=== PATIENT | male | born 1955 | race Caucasian/White ===

== ENCOUNTER 2017-12-08 12:17 | Emergency (ER) | payer MEDICARE ==
[~2017-12-08] VITALS: Ht 182.9 cm; Wt 92.0 kg
[2017-12-08 12:17] VITALS: BP 113/79; PULSE 90; RESP 16; TEMP 99.3; O2SAT 90
[2017-12-08] MEDS ORDERED: PRAV40TA2 PO (12:37)
[2017-12-08] MEDS ORDERED: ASPI-516 CHEW (12:37)
[2017-12-08] MEDS ORDERED: FURO40TA PO (12:37)
[2017-12-08] MEDS ORDERED: SPIR25TA PO (12:37)
[2017-12-08] MEDS ORDERED: METO2.5T PO (12:37)
[2017-12-08] MEDS ORDERED: CARV3.12 PO (12:37)
[2017-12-08] MEDS ORDERED: WARF-58 PO (12:37)
[2017-12-08] MEDS ORDERED: ONDANSETRON HCL 4 MG/2 ML VIAL IV PUSH ONE (13:00)
[2017-12-08] MEDS ORDERED: MORPHINE SULFATE 4 MG/ML INJ IV PUSH ONE (13:00)
--- NOTE | 2017-12-08 13:28 | PD ---
HPI Chief Complaint: Musculoskeletal Complaint Time Seen by Provider: 12:43 Travel History International Travel<30 days: No Contact w/Intl Traveler<30days: No Traveled to known affect area: No History of Present Illness HPI 62-year-old male with a history of gout here with right knee pain 4 days. He reports similar pain in the past with prior gouty flares. He denies fever or chills. He denies injury or trauma. He reports multiple prior episodes of gout within the knee. He recently relocated here from [place]. He has a history of stage III chronic kidney disease, diabetes, triple bypass, gout, hypertension, osteoarthritis. He reports he was previously treated with colchicine until his kidney function declined. More recently he has been treated with steroids. He is currently on allopurinol and discontinued use when this flare began. Pain is localized to the knee, nonradiating, worse with movement. No alleviating factors. PFSH Past Medical History Arthritis: Yes (GOUT, OSTEO) Atrial Fibrillation: Yes (FLUTTER) Cardiovascular Problems: Yes (LT BBB) High Cholesterol: Yes Congestive Heart Failure: Yes Coronary Artery Disease: Yes Diabetes: Yes (TYPE 2 CONTROLLED) Patient Takes Glucophage: No Renal Failure: Yes (STAGE 3) Influenza Vaccination: Yes Past Surgical History AICD: Yes Coronary Artery Bypass Graft: Yes Social History Alcohol Use: No Tobacco Use: No Substance Use: No Allergies-Medications (Allergen,Severity, Reaction): Coded Allergies: No Known Allergies (Unverified , 12/08/17) Reported Meds & Prescriptions Reported Meds & Active Scripts Active Percocet (Oxycodone-Acetaminophen) 5-325 mg Tab 1 Tab PO Q6H PRN Reported Warfarin 3 Mg Tab 3 Mg PO DAILY Spironolactone 25 Mg Tab 25 Mg PO DAILY Pravastatin 40 Mg Tab 40 Mg PO DAILY Metolazone 2.5 Mg Tab 2.5 Mg PO DAILY Furosemide 40 Mg Tab 40 Mg PO DAILY Carvedilol 3.125 Mg Tab 3.125 Mg PO BID Aspirin 81 Mg Chew 81 Mg CHEW DAILY Review of Systems Except as stated in HPI: all other systems reviewed are Neg General / Constitutional: No: Fever Eyes: No: Visual changes HENT: No: Headaches Cardiovascular: No: Chest Pain or Discomfort Respiratory: No: Shortness of Breath Gastrointestinal: No: Abdominal Pain Genitourinary: No: Dysuria Musculoskeletal: Positive: Pain (Right knee pain) Skin: No Rash Physical Exam Narrative GENERAL: Alert and well-appearing 62-year-old male SKIN: Warm and dry. HEAD: Normocephalic. EYES: No scleral icterus. No injection or drainage. NECK: Supple CARDIOVASCULAR: Regular rate and rhythm RESPIRATORY: Breath sounds equal bilaterally. No accessory muscle use. GASTROINTESTINAL: Abdomen soft, non-tender, nondistended. MUSCULOSKELETAL: No cyanosis. Right knee: +TTP anterior aspect . visible tophi to the anterior aspect of the knee. There is no overlying erythema. Area is slightly warmer than opposing knee. Flexion elicits pain. DP pulses are dopplerable. Sensation intact Data Data Last Documented VS Vital Signs Date Time Temp Pulse Resp B/P (MAP) Pulse Ox O2 Delivery O2 Flow Rate FiO2 12/08/17 12:17 99.3 90 16 113/79 (90) 90 Orders Orders Morphine Inj (Morphine Inj) (12/08/17 13:00) Ondansetron Inj (Zofran Inj) (12/08/17 13:00) Oxycodone-Acetamin 5-325 Mg (Percocet (12/08/17 14:00) Dexamethasone Inj (Decadron Inj) (12/08/17 14:00) MDM Medical Decision Making Medical Screen Exam Complete: Yes Emergency Medical Condition: Yes Differential Diagnosis Gout, arthritis, septic joint unlikely Narrative Course 62-year-old male with right knee pain. He is well-appearing. He has significant pain with flexion of the knee. I do not suspect an infectious source. The plan is to medicate for pain and ambulate the patient. After further discussion with patient and family they report he has had difficulty ambulating for some time now. He lives with his close friend who is his caregiver and present at today's visit. He was able to ambulate from the bed to the chair with 1 person assistance. He reports symptom improvement and is requesting discharge. Diagnosis Primary Impression: Knee pain Qualified Codes: M25.561 - Pain in right knee Referrals: Primary Care Physician Additional Instructions: Follow the gout diet. Pain medication as directed. Follow-up with her primary doctor. Return to the emergency department if you develop new or worsening symptoms. Scripts Oxycodone-Acetaminophen (Percocet) 5-325 mg Tab 1 TAB PO Q6H Y for PAIN, #12 TAB 0 Refills Prov: Kimberley Ford 12/08/17 Disposition: 01 DISCHARGE HOME Condition: Stable Kimberley Ford Dec 08, 2017 13:28
[2017-12-08] MEDS ORDERED: oxyCODONE/ACETAMINOPHEN 5 MG/325 MG TAB PO ONE (14:00)
[2017-12-08] MEDS ORDERED: DEXAMETHASONE SOD PHOS 4 MG/ML VIAL IM ONE (14:00)
[2017-12-08] MEDS ORDERED: PERC5TAB12 PO (14:34)
== END 2017-12-08 14:42 | disposition home or self-care (01) ==
LOC: PHEFT 12:17 → EDBD 12:17 → PHEFT 14:42
DX: M25.561 Pain in right knee (principal); M10.9 Gout, unspecified; N18.3 Chronic kidney disease, stage 3 (moderate); E11.22 Type 2 diabetes mellitus with diabetic chronic kidney disease; I10 Essential (primary) hypertension; I48.91 Unspecified atrial fibrillation
CPT/HCPCS: 96372; 96374; 96375; 99284; J1100; J2270; J2405

== ENCOUNTER 2018-04-09 14:36 | Inpatient (IN) ==
--- NOTE | 2018-04-09 15:06 | ED ---
HPI General Chief complaint: Weakness Stated complaint: Lightheaded/knees/feet pain x Saturday Time Seen by Provider: 04/09/18 15:03 Source: patient Mode of arrival: ambulatory Limitations: no limitations History of Present Illness HPI Narrative: 62-year-old male patient with history of CAD status post CABG x4 , hypertension, A. fib currently on Coumadin, gouty arthritis, presents to the ER today because he states that he started having a gouty arthritis flare about 3 days ago, states that his knees and feet are hurting, and his usual gouty arthritis spots. However, at this time he is also having some lightheadedness, and feeling weak. He denies any fevers, diarrhea, vomiting, chest pains, trouble breathing or other symptoms. He states the pain from the gouty arthritis is 10 out of 10. Related Data Home Medications Medication Instructions Recorded Confirmed aspirin [Aspir-Low] 81 mg PO DAILY 03/06/18 04/09/18 carvedilol 3.125 mg PO BID 03/06/18 04/09/18 furosemide 40 mg PO DAILY 03/06/18 04/09/18 metolazone 2.5 mg PO DAILY 03/06/18 04/09/18 pravastatin 40 mg PO DAILY 03/06/18 04/09/18 spironolactone 25 mg PO DAILY 03/06/18 04/09/18 warfarin 6 mg PO DAILY 03/06/18 04/09/18 Previous Rx's Medication Instructions Recorded hydrocodone-acetaminophen 1 tab PO Q4-6H PRN #10 tab 03/26/18 Allergies Allergy/AdvReac Type Severity Reaction Status Date / Time No Known Allergies Allergy Verified 04/09/18 15:23 Review of Systems ROS: all other systems reviewed are negative PMFSH History History Provided By: Patient Medical History Medical History Atrial fibrillation (Acute) Cardiac defibrillator in place (Acute) Gout (Acute) Kidney disease (Acute) Social History Social History Substance History: No History of Abuse Second Hand Smoke Exposure: No Smoking Status: Never smoker How Often Do You Have a Drink Containing Alcohol: Never Recent Travel in [facility] within the Last 8 Weeks: No Recent Out of Country Travel within the Last 8 Weeks: No Exam Narrative Exam Narrative: GENERAL: Well-developed elderly male patient currently in moderate distress. Awake and oriented x3. SKIN: Focused skin assessment warm/dry. HEAD: Atraumatic. Normocephalic. EYES: Pupils equal and round. No scleral icterus. No injection or drainage. ENT: No nasal bleeding or discharge. Mucous membranes pink and moist. NECK: Trachea midline. No JVD. CARDIOVASCULAR: Regular rate and rhythm. No murmur appreciated. RESPIRATORY: No accessory muscle use. Clear to auscultation. Breath sounds equal bilaterally. GASTROINTESTINAL: Abdomen soft, non-tender, nondistended. Hepatic and splenic margins not palpable. MUSCULOSKELETAL: No obvious deformities. No clubbing. No cyanosis. No edema. 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 Tender to palpation of those joints. NEUROLOGICAL: Awake and alert. No obvious cranial nerve deficits. Motor grossly within normal limits. Normal speech. PSYCHIATRIC: Appropriate mood and affect; insight and judgment normal. Course Initial Documented Vital Signs Temperature 97.3 F L 04/09/18 14:39 Pulse Rate 138 H 04/09/18 14:39 Respiratory Rate 22 04/09/18 14:39 Blood Pressure 73/46 L 04/09/18 14:39 Pulse Oximetry 97 04/09/18 14:39 Last Documented Vital Signs Temperature 97.3 F L 04/09/18 14:39 Pulse Rate 88 04/09/18 16:00 Respiratory Rate 16 04/09/18 16:00 Blood Pressure 97/58 L 04/09/18 16:00 Pulse Oximetry 96 04/09/18 16:00 Medical Decision Making [facility] Narrative Medical decision making narrative: Lab work is significant for worsening renal function with elevated BUN of 64 and creatinine of 2.6. He is tachycardic in the ER and blood pressure is low. I suspect some underlying dehydration, son admits that he has not been eating very well. IV fluids were given in the ER with improvement in heart rate. Otherwise, his INR is 9. 3. My plan at this point would be to admit him for treatment of elevated INR and worsening renal functions. Case is discussed with Dr. Florentino for admission. Medical Screen Exam Complete: Yes Emergency Medical Condition: Yes Differential Diagnosis Differential Diagnosis: Dehydration versus dysrhythmias versus electrolyte disturbances versus sepsis Lab Data Lab results reviewed: Yes I reviewed the patient's lab results. Result diagrams: 04/09/18 15:10 04/09/18 15:10 Lab Results 04/09/18 04/09/18 04/09/18 Range/Units 15:10 15:10 15:10 CBC w Diff Slide review pending WBC 13.3 H (4.0-11.0) th/mm3 RBC 5.10 (4.50-5.90) mil/mm3 Hgb 14.6 (13.0-17.0) gm/dL Hct 42.5 (39.0-51.0) % MCV 83.3 (80.0-100.0) fL MCH 28.6 (27.0-34.0) pg MCHC 34.4 (32.0-36.0) % RDW 15.3 (11.6-17.2) % Plt Count 186 (150-450) th/mm3 MPV 10.2 (7.0-11.0) fL Neut % (Auto) 83.5 H (16.0-70.0) % Lymph % (Auto) 6.8 L (9.0-44.0) % [place] % (Auto) 7.8 (0.0-8.0) % Eos % (Auto) 1.5 (0.0-4.0) % Baso % (Auto) 0.4 (0.0-2.0) % Neut # (Auto) 11.1 H (1.8-7.7) th/mm3 Lymph # (Auto) 0.9 L (1.0-4.8) th/mm3 [place] # (Auto) 1.0 H (0.0-0.9) th/mm3 Eos # (Auto) 0.2 (0.0-0.4) th/mm3 Baso # (Auto) 0.1 (0.0-0.2) th/mm3 WBC Differential . Diff Scan Auto diff confirmed Differential Comment . Platelet Estimate Normal (Normal) Platelet Morphology Enlarged H (Normal) PT 92.8 H D (9.8-11.6) sec INR 9.3 H* Ratio Sodium 133 L (136-145) meq/L Potassium 3.3 L (3.5-5.1) meq/L Chloride 95 L (98-107) meq/L Carbon Dioxide 24.6 (21.0-32.0) meq/L Anion Gap 13 (5-15) meq/L BUN 64 H (7-18) mg/dL Creatinine 2.60 H (0.60-1.30) mg/dL Estimated GFR 25 L (>89) mL/min Random Glucose 228 H (74-106) mg/dL Calcium 9.4 (8.5-10.1) mg/dL Total Bilirubin 1.1 H (0.2-1.0) mg/dL AST 41 H (15-37) U/L ALT 32 (12-78) U/L Alkaline Phosphatase 196 H (45-117) U/L Troponin I Less than 0.02 L (0.02-0.05) ng/mL Total Protein 8.2 (6.4-8.2) g/dL Albumin 3.1 L (3.4-5.0) g/dL ECG Data Attestation: I personally reviewed and interpreted this ECG as follows: Interpretation: EKG shows atrial flutter with a ventricular rate of 100 bpm. Notable for LVH as well. No signs of acute ST elevation. Discharge Plan Discharge Disposition Patient Disposition: 30 Still Patient Discharge Condition Condition: Stable Discharge Details Anticipated Discharge Date: 04/09/18 Diagnosis: Dehydration, Elevated INR, Atrial flutter with rapid ventricular response Physicians Team ED Provider: Libra Bhandari Primary Care Provider: Cruz Saucedo Rxs /Orders / Referrals /Forms Prescriptions: No Action hydrocodone-acetaminophen 5-325 mg tablet 1 tab PO Q4-6H PRN (Reason: pain) Qty: 10 RF: 0 furosemide 40 mg Tablet 40 mg PO DAILY RF: 0 metolazone 2.5 mg Tablet 2.5 mg PO DAILY RF: 0 pravastatin 40 mg Tablet 40 mg PO DAILY RF: 0 aspirin [Aspir-Low] 81 mg Tablet,Delayed Release (Dr/Ec) 81 mg PO DAILY RF: 0 spironolactone 25 mg Tablet 25 mg PO DAILY RF: 0 carvedilol 3.125 mg Tablet 3.125 mg PO BID RF: 0 warfarin 6 mg Tablet 6 mg PO DAILY RF: 0 Discharge Interventions Interventions: Vital Signs Last Done: 04/09/18 16:00 Status ED Status: With Doctor
[2018-04-09 15:39] LABS: Baso # (Auto) 0.1 th/mm3 (0.0-0.2); Baso % (Auto) 0.4 % (0.0-2.0); Eos # (Auto) 0.2 th/mm3 (0.0-0.4); Eos % (Auto) 1.5 % (0.0-4.0); Hematocrit 42.5 % (39.0-51.0); Hemoglobin 14.6 gm/dL (13.0-17.0); Lymph # (Auto) 0.9 th/mm3 (1.0-4.8); Lymph % (Auto) 6.8 % (9.0-44.0); Mean Corpuscular HGB Conc 34.4 % (32.0-36.0); Mean Corpuscular Hemoglobin 28.6 pg (27.0-34.0); Mean Corpuscular Volume 83.3 fL (80.0-100.0); Mean Platelet Volume 10.2 fL (7.0-11.0); Mono % (Auto) 7.8 % (0.0-8.0); Neut # (Auto) 11.1 th/mm3 (1.8-7.7); Neut % (Auto) 83.5 % (16.0-70.0); Platelet Count 186 th/mm3 (150-450); Red Cell Distribution Width 15.3 % (11.6-17.2); White Blood Count 13.3 th/mm3 (4.0-11.0)
[2018-04-09 15:41] LABS: Chloride 95 meq/L (98-107); Potassium 3.3 meq/L (3.5-5.1); Sodium 133 meq/L (136-145)
[2018-04-09 15:44] LABS: Calcium 9.4 mg/dL (8.5-10.1)
[2018-04-09 15:45] LABS: Albumin 3.1 g/dL (3.4-5.0); Anion Gap 13 meq/L (5-15); Blood Urea Nitrogen 64 mg/dL (7-18); Carbon Dioxide 24.6 meq/L (21.0-32.0); Glucose,Random 228 mg/dL (74-106)
[2018-04-09 15:48] LABS: Alanine Aminotransferase 32 U/L (12-78); Aspartate Aminotransferase 41 U/L (15-37); Glomerular Filtration Rate 25 mL/min (>89)
[2018-04-09 15:49] LABS: Total Protein 8.2 g/dL (6.4-8.2)
[2018-04-09 15:51] LABS: Alkaline Phosphatase 196 U/L (45-117)
[2018-04-09 15:54] LABS: Prothrombin Time 92.8 sec (9.8-11.6)
[2018-04-09 15:59] LABS: INR 9.3 Ratio
[2018-04-09] MEDS ORDERED: Sodium Chlor 0.9% Inj 500 ML IV.SIG SCH ×2 (16:00→17:00)
[2018-04-09] MEDS ORDERED: Phytonadione 5 MG/SWFI 5 ML Oral Syringe PO ONE (16:13)
[2018-04-09 16:35] LABS: Platelet Estimate Normal (Normal)
--- NOTE | 2018-04-09 17:16 | P.HPIM ---
History of Present Illness Primary Care Physician: Cruz Saucedo Chief Complaint: left knee pain History of Present Illness: patient is a 62 y/o male with history of CAD, CKD, gout,who presented to ER with left knee and right foot pain. he was seen in ER about two weeks ago with gout flare-up and was discharged with oral steroids. he says that he was initially fine but the pain came back two days ago and started to get worse. he denies any fever,chills.he denies any chest pain, sob or active bleeding. Review of Systems All other systems reviewed negative except as stated in HPI PMFSH - History History Provided By: Patient - Medical History Medical History: Medical History (Last Reviewed 04/09/18 @ 17:13 by Anne Marie Staples MD) Atrial fibrillation Cardiac defibrillator in place Gout Kidney disease - Family History Family History: Family History (Last Reviewed 04/09/18 @ 17:13 by Anne Marie Staples MD) Other No pertinent family history - Tobacco History Second Hand Smoke Exposure: No Smoking Status: Never smoker - Alcohol History How Often Do You Have a Drink Containing Alcohol: Never - Substance Use History Substance History: No History of Abuse - Travel History Recent Travel in the [place] Within the Last 8 Weeks: No Recent Travel Out of the Country Within the Last 8 Weeks: No - Immunization History Tetanus Immunization: Unsure Medications and Allergies Active Medications: Active Medications Carvedilol (Coreg) 3.125 mg PO BID BABAK Sodium Chloride (Ns Inj) 500 mls @ 0 mls/hr IV.SIG BOLUS BABAK Last Infusion: 04/09/18 16:06 Dose: Infused Sodium Chloride (Ns Inj) 500 mls @ 0 mls/hr IV.SIG BOLUS BABAK Last Infusion: 04/09/18 16:34 Dose: Infused Sodium Chloride (Ns Inj) 1,000 mls @ 84 mls/hr IV.CONT .[id number] BABAK Pravastatin Sodium (Pravachol) 40 mg PO DAILY BABAK Prednisone (Deltasone) 40 mg PO DAILY BABAK Sodium Chloride (Ns Flush) 2 ml IV.FLUSH PRN PRN PRN Reason: FLUSH AFTER USING IV ACCESS Allergies Allergy/AdvReac Type Severity Reaction Status Date / Time No Known Allergies Allergy Verified 04/09/18 15:23 Home Medications Medication Instructions Recorded Confirmed Type aspirin [Aspir-Low] 81 mg PO DAILY 03/06/18 04/09/18 History carvedilol 3.125 mg PO BID 03/06/18 04/09/18 History furosemide 40 mg PO DAILY 03/06/18 04/09/18 History metolazone 2.5 mg PO DAILY 03/06/18 04/09/18 History pravastatin 40 mg PO DAILY 03/06/18 04/09/18 History spironolactone 25 mg PO DAILY 03/06/18 04/09/18 History warfarin 6 mg PO DAILY 03/06/18 04/09/18 History Exam Vital signs: Vital Signs 04/09/18 14:39 04/09/18 15:24 04/09/18 16:00 Temperature 97.3 F L Pulse Rate 138 H 100 H 88 Respiratory Rate 22 16 16 Blood Pressure 73/46 L 93/58 L 97/58 L Pulse Oximetry 97 96 96 Intake & Output 04/08/18 04/09/18 04/09/18 18:59 06:59 18:59 Intake Total 1000 / 1000 Balance 1000 / 1000 Weight 86.3 kg Intake: IV 1000 / 1000 NS Inj 500 ML @ Wide Open IV. 1000 / 1000 SIG BOLUS BABAK Rx#:[id number] - Constitutional no acute distress - Routine HEENT Exam Eye: Present: PERRL - Routine Neck Exam Present: supple - Routine Respiratory Exam Present: CTA bilaterally - Routine Cardiovascular Exam Present: RRR - Routine Abdominal Exam Present: soft - Routine Extremities Exam Comments: some swelling of the left knee and right foot with some decrease in ROM of the left knee. - Routine Neurological Exam Present: alert, oriented X3 Results - Labs CBC & Chem 7: 04/10/18 04:50 04/10/18 04:50 Labs: Short CBC 04/09/18 Range/Units 15:10 WBC 13.3 H (4.0-11.0) th/mm3 Hgb 14.6 (13.0-17.0) gm/dL Hct 42.5 (39.0-51.0) % Plt Count 186 (150-450) th/mm3 BMP 04/09/18 15:10 Sodium 133 L Potassium 3.3 L Chloride 95 L Carbon Dioxide 24.6 BUN 64 H Creatinine 2.60 H Calcium 9.4 Cardiac Enzymes 04/09/18 Range/Units 15:10 Troponin I Less than 0.02 L (0.02-0.05) ng/mL Liver Function 04/09/18 Range/Units 15:10 Total Bilirubin 1.1 H (0.2-1.0) mg/dL AST 41 H (15-37) U/L ALT 32 (12-78) U/L Alkaline Phosphatase 196 H (45-117) U/L Albumin 3.1 L (3.4-5.0) g/dL Caprini VTE Risk Assessment Caprini VTE Risk Assessment: Moderate/High Risk (score >= 2) VTE Pharmacological Exception Reason: High risk for bleeding Caprini Risk Assessment Model: Point Value = 1 Point Value = 2 Point Value = 3 Point Value = 5 Age 41-60 Minor surgery BMI > 25 kg/m2 Swollen legs Varicose veins or History of unexplained or recurrent spontaneous Oral contraceptives or hormone replacement Sepsis (< 1 month) Serious lung disease, including pneumonia (< 1 month) Abnormal pulmonary function Acute myocardial infarction Congestive heart failure (< 1 month) History of inflammatory bowel disease Medical patient at bed rest Age 61-74 Arthroscopic surgery Major open surgery (> 45 min) Laparoscopic surgery (> 45 min) Malignancy Confined to bed (> 72 hours) Immobilizing plaster cast Central venous access Age >= 75 History of VTE Family history of VTE Factor V Leiden Prothrombin [id number] Lupus anticoagulant Anticardiolipin antibodies Elevated serum homocysteine Heparin-induced thrombocytopenia Other congenital or acquired thrombophilia Stroke (< 1 month) Elective arthroplasty Hip, pelvis, or leg fracture Acute spinal cord injury (< 1 month) Prophylaxis Regimen: Total Risk Factor Score Risk Level Prophylaxis Regimen 0-1 Low Early ambulation 2 Moderate Order ONE of the following: *Sequential Compression Device (SCD) *Heparin 5000 units SQ BID 3-4 Higher Order ONE of the following medications: *Heparin 5000 units SQ TID *Enoxaparin/Lovenox 40 mg SQ daily (WT < 150 kg, CrCl > 30 mL/min) *Enoxaparin/Lovenox 30 mg SQ daily (WT < 150 kg, CrCl > 10-29 mL/min) *Enoxaparin/Lovenox 30 mg SQ BID (WT < 150 kg, CrCl > 30 mL/min) AND/OR *Sequential Compression Device (SCD) 5 or more Highest Order ONE of the following medications: *Heparin 5000 units SQ TID (Preferred with Epidurals) *Enoxaparin/Lovenox 40 mg SQ daily (WT < 150 kg, CrCl > 30 mL/min) *Enoxaparin/Lovenox 30 mg SQ daily (WT < 150 kg, CrCl > 10-29 mL/min) *Enoxaparin/Lovenox 30 mg SQ BID (WT < 150 kg, CrCl > 30 mL/min) AND *Sequential Compression Device (SCD) Assessment and Plan - Plan A/P - gout flare-up will start on steroids- will avoid NSAIDs/ colchicine due to HARITHA -HARITHA- superimposed on CKD gentle IV hydration- will monitor the renal function -coagulopathy/ Coumadin toxicity will hold Coumadin- received vitamin K in ER- will monitor closely; INR in am -a-fib- resume BB with close monitoring of BP- hold Coumadin as noted above. -transient hypotension- has resolved. -hyperglycemia likely due to steroids- start on accu-check with SSI- check A1c. Discussed Condition With: ER physician and the patient. Discharge Planning: home; within the next 48 hrs when pain is better and INR trending down.
[2018-04-09] MEDS ORDERED: Dextrose 50% in Water 50 ML Vial IV.PUSH PRN (17:17)
[2018-04-09] MEDS ORDERED: Acetaminophen 325 MG Tablet PO PRN (17:19)
[2018-04-09] MEDS: predniSONE 20 MG Tablet PO SCH (18:14)
[2018-04-09] MEDS: Sod Chloride 0.9% Inj 1,000 ML IV.CONT SCH (21:40)
[2018-04-09 22:08] LABS: Bilirubin,Urine Negative (Negative); Clarity,Urine Clear (Clear); Color,Urine Yellow (Yellw/Straw); Glucose,Urine (UA) Negative (Negative); Leukocyte Esterase,Urine Negative (Negative); Nitrite,Urine Negative (Negative); PH,Urine 5.5 (5.0-8.5); Urobilinogen,Urine 0.2 mg/dL (Less than 2)
[2018-04-09 22:12] LABS: Bacteria,Urine Rare /hpf; RBC,Urine 0-3 /hpf (0-3); Squamous Epithelial Cell,Urine 0-5 /hpf (0-5); WBC,Urine 0-5 /hpf (0-5)
[2018-04-09 22:13] LABS: Hyaline Casts,Urine 0-3 /lpf (0-3); Mucus,Urine Few /lpf (Occasional)
[2018-04-10] MEDS: Insulin NovoLOG Aspart Correctional Sugar Inj SQ SCH ×5 (00:15→22:31)
[2018-04-10] MEDS: Sod Chloride 0.9% Inj 1,000 ML IV.CONT SCH ×2 (06:25→18:02)
[2018-04-10 06:33] LABS: Baso % (Auto) 0.1 % (0.0-2.0); Eos % (Auto) 0.1 % (0.0-4.0); Hemoglobin 12.3 gm/dL (13.0-17.0); Lymph # (Auto) 0.3 th/mm3 (1.0-4.8); Mean Corpuscular HGB Conc 33.1 % (32.0-36.0); Mean Corpuscular Hemoglobin 28.2 pg (27.0-34.0); Mean Corpuscular Volume 85.3 fL (80.0-100.0); Mean Platelet Volume 10.8 fL (7.0-11.0); Mono # (Auto) 0.3 th/mm3 (0.0-0.9); Neut # (Auto) 7.1 th/mm3 (1.8-7.7); Neut % (Auto) 91.8 % (16.0-70.0); Platelet Count 152 th/mm3 (150-450); Red Blood Count 4.34 mil/mm3 (4.50-5.90); Red Cell Distribution Width 14.7 % (11.6-17.2); White Blood Count 7.7 th/mm3 (4.0-11.0)
[2018-04-10 06:51] LABS: Potassium 3.3 meq/L (3.5-5.1)
[2018-04-10 06:55] LABS: Calcium 8.8 mg/dL (8.5-10.1); Carbon Dioxide 26.2 meq/L (21.0-32.0)
[2018-04-10 06:59] LABS: INR 6.5 Ratio
--- NOTE | 2018-04-10 08:01 | P.PNIM ---
Subjective Interval history: f/u; gout flare-up/ coagulopathy in no acute distress. pain to the left knee/ right foot slightly better today. no fever. no bleeding/ INR trend noted. Physical Exam Vital signs: Vital Signs 04/09/18 14:39 04/09/18 15:24 04/09/18 16:00 Temperature 97.3 F L Pulse Rate 138 H 100 H 88 Respiratory Rate 22 16 16 Blood Pressure 73/46 L 93/58 L 97/58 L Pulse Oximetry 97 96 96 04/09/18 17:00 04/09/18 18:19 04/09/18 20:00 Temperature 97.0 F L Pulse Rate 66 82 67 Respiratory Rate 16 16 20 Blood Pressure 93/60 L 94/65 L 92/58 L Pulse Oximetry 95 97 99 04/09/18 21:23 04/10/18 00:00 04/10/18 00:15 Temperature 97.2 F L Pulse Rate 67 67 67 Respiratory Rate 20 Blood Pressure 99/55 L Pulse Oximetry 97 04/10/18 04:00 Temperature 97.1 F L Pulse Rate 69 Respiratory Rate 20 Blood Pressure 101/64 Pulse Oximetry 97 Intake & Output 04/09/18 04/10/18 04/10/18 18:59 06:59 18:59 Intake Total 1000 / 1000 1480 / 1480 Output Total 1750 / 1750 Balance 1000 / 1000 -270 / -270 Weight 86.3 kg 85 kg Intake: IV 1000 / 1000 1000 / 1000 NS Inj 1,000 ML @ 84 mls/hr IV. 1000 / 1000 CONT .[id number] [facility] Rx#: [id number] NS Inj 500 ML @ Wide Open IV. 1000 / 1000 SIG BOLUS [facility] Rx#:[id number] Oral 480 / 480 Output: Urine 1750 / 1750 Other: # Voids 1 Date of Last Bowel Movement 04/07/18 Weight On Admission 86 kg - Constitutional no acute distress - Routine Respiratory Exam Present: CTA bilaterally - Routine Cardiovascular Exam Present: RRR - Routine Abdominal Exam Present: soft - Routine Extremities Exam Comments: mild swelling of the left knee/ right foot; ROM of left knee is better today. - Routine Neurological Exam Present: alert, oriented X3 Results - Labs CBC & Chem 7: 04/10/18 04:50 04/10/18 04:50 Laboratory Results - last 24 hr 1004/09/18 04/09/18 15:10 15:10 15:10 CBC w Diff Slide review pending WBC 13.3 H RBC 5.10 Hgb 14.6 Hct 42.5 MCV 83.3 MCH 28.6 MCHC 34.4 RDW 15.3 Plt Count 186 MPV 10.2 Neut % (Auto) 83.5 H Lymph % (Auto) 6.8 L [place] % (Auto) 7.8 Eos % (Auto) 1.5 Baso % (Auto) 0.4 Neut # (Auto) 11.1 H Lymph # (Auto) 0.9 L [place] # (Auto) 1.0 H Eos # (Auto) 0.2 Baso # (Auto) 0.1 WBC Differential . Diff Scan Auto diff confirmed Differential Comment . Platelet Estimate Normal Platelet Morphology Enlarged H PT 92.8 H D INR 9.3 H* Sodium 133 L Potassium 3.3 L Chloride 95 L Carbon Dioxide 24.6 Anion Gap 13 BUN 64 H Creatinine 2.60 H Estimated GFR 25 L POC Glucose Random Glucose 228 H Calcium 9.4 Total Bilirubin 1.1 H AST 41 H ALT 32 Alkaline Phosphatase 196 H Troponin I Less than 0.02 L Total Protein 8.2 Albumin 3.1 L Urine Color Urine Clarity Urine pH Ur Specific [place] Urine Protein Urine Glucose (UA) Urine Ketones Urine Occult Blood Urine Nitrate Urine Bilirubin Urine Urobilinogen Ur Leukocyte Esterase Urine RBC Urine WBC Ur Squamous Epith Cells Urine Bacteria Hyaline Casts Urine Mucus Micro UA Comment Ur Microscopic Review Urine Culture Comments 04/09/18 04/09/18 04/09/18 21:50 23:13 23:18 CBC w Diff WBC RBC Hgb Hct MCV MCH MCHC RDW Plt Count MPV Neut % (Auto) Lymph % (Auto) [place] % (Auto) Eos % (Auto) Baso % (Auto) Neut # (Auto) Lymph # (Auto) [place] # (Auto) Eos # (Auto) Baso # (Auto) WBC Differential Diff Scan Differential Comment Platelet Estimate Platelet Morphology PT INR Sodium Potassium Chloride Carbon Dioxide Anion Gap BUN Creatinine Estimated GFR POC Glucose 450 H 445 H Random Glucose Calcium Total Bilirubin AST ALT Alkaline Phosphatase Troponin I Total Protein Albumin Urine Color Yellow Urine Clarity Clear Urine pH 5.5 Ur Specific [place] 1.020 Urine Protein Negative Urine Glucose (UA) Negative Urine Ketones Negative Urine Occult Blood Trace Urine Nitrate Negative Urine Bilirubin Negative Urine Urobilinogen 0.2 Ur Leukocyte Esterase Negative Urine RBC 0-3 Urine WBC 0-5 Ur Squamous Epith Cells 0-5 Urine Bacteria Rare H Hyaline Casts 0-3 Urine Mucus Few H Micro UA Comment Culture not ind Ur Microscopic Review Microscopic reviewed Urine Culture Comments Culture not ind 04/10/18 04/10/18 04/10/18 04:50 04:50 04:50 CBC w Diff Auto diff final WBC 7.7 RBC 4.34 L Hgb 12.3 L D Hct 37.0 L MCV 85.3 MCH 28.2 MCHC 33.1 RDW 14.7 Plt Count 152 MPV 10.8 Neut % (Auto) 91.8 H Lymph % (Auto) 4.0 L [place] % (Auto) 4.0 Eos % (Auto) 0.1 Baso % (Auto) 0.1 Neut # (Auto) 7.1 Lymph # (Auto) 0.3 L [place] # (Auto) 0.3 Eos # (Auto) 0.0 Baso # (Auto) 0.0 WBC Differential . Diff Scan Differential Comment . Platelet Estimate Platelet Morphology PT 65.0 H D INR 6.5 H* Sodium 136 Potassium 3.3 L Chloride 100 Carbon Dioxide 26.2 Anion Gap 10 BUN 50 H Creatinine 1.70 H Estimated GFR 41 L POC Glucose Random Glucose 280 H Calcium 8.8 Total Bilirubin AST ALT Alkaline Phosphatase Troponin I Total Protein Albumin Urine Color Urine Clarity Urine pH Ur Specific [place] Urine Protein Urine Glucose (UA) Urine Ketones Urine Occult Blood Urine Nitrate Urine Bilirubin Urine Urobilinogen Ur Leukocyte Esterase Urine RBC Urine WBC Ur Squamous Epith Cells Urine Bacteria Hyaline Casts Urine Mucus Micro UA Comment Ur Microscopic Review Urine Culture Comments 04/10/18 04/10/18 04:52 07:11 CBC w Diff WBC RBC Hgb Hct MCV MCH MCHC RDW Plt Count MPV Neut % (Auto) Lymph % (Auto) [place] % (Auto) Eos % (Auto) Baso % (Auto) Neut # (Auto) Lymph # (Auto) [place] # (Auto) Eos # (Auto) Baso # (Auto) WBC Differential Diff Scan Differential Comment Platelet Estimate Platelet Morphology PT INR Sodium Potassium Chloride Carbon Dioxide Anion Gap BUN Creatinine Estimated GFR POC Glucose 338 H 256 H Random Glucose Calcium Total Bilirubin AST ALT Alkaline Phosphatase Troponin I Total Protein Albumin Urine Color Urine Clarity Urine pH Ur Specific [place] Urine Protein Urine Glucose (UA) Urine Ketones Urine Occult Blood Urine Nitrate Urine Bilirubin Urine Urobilinogen Ur Leukocyte Esterase Urine RBC Urine WBC Ur Squamous Epith Cells Urine Bacteria Hyaline Casts Urine Mucus Micro UA Comment Ur Microscopic Review Urine Culture Comments Assessment and Plan - Plan A/P - gout flare-up- improving slowly. continue steroids- will avoid NSAIDs/ colchicine due to HARITHA -HARITHA- superimposed on CKD- improving on IV fluid. continue IV hydration- will monitor the renal function -coagulopathy/ Coumadin toxicity- INR trending down. will continue to hold Coumadin- received vitamin K in ER- will monitor closely ; INR in am -a-fib- resume BB- hold Coumadin as noted above. -hyperglycemia likely due to steroids- start on accu-check with SSI- check A1c. Discharge Planning: home; tomorrow when pain is better and INR trending down. consulted PT.
[2018-04-10] MEDS: predniSONE 20 MG Tablet PO SCH (08:09)
[2018-04-10] MEDS ORDERED: Influenza (Quadrivalent) Vaccine 0.5 ML Syringe IM ONE (09:00)
[2018-04-10 16:25] LABS: Hemoglobin A1c 7.5 % (4.3-6.0)
--- NOTE | 2018-04-10 20:33 | ECG ---
Date Performed: 04/09/2018 Time Performed: 14:56:51 PTAGE: 62 years EKG: ATRIAL FIBRILLATION WITH RAPID VENTRICULAR RESPONSE MARKED LEFT AXIS DEVIATION INTRAVENTRIC ULAR CONDUCTION DELAY LEFT VENTRICULAR HYPERTROPHY AND ST-T CHANGE ABNORMAL ECG PREVIOUS TRACING : 03/26/2018 17.00 Since the previous tracing, no significant change noted DOCTOR: Viktor Perla Interpretating Date/Time 04/10/2018 20:32:44
[2018-04-11 01:23] VITALS: O2SAT 98
[2018-04-11] MEDS: Sod Chloride 0.9% Inj 1,000 ML IV.CONT SCH (05:27)
[2018-04-11 06:17] LABS: Potassium 3.6 meq/L (3.5-5.1)
[2018-04-11 06:20] LABS: Calcium 8.8 mg/dL (8.5-10.1)
[2018-04-11 06:23] LABS: INR 2.1 Ratio; Prothrombin Time 21.4 sec (9.8-11.6)
[2018-04-11 06:50] LABS: Carbon Dioxide 26.3 meq/L (21.0-32.0)
--- NOTE | 2018-04-11 08:20 | P.PNIM ---
Subjective Interval history: f/u; gout flare-up/HARITHA in no acute distress. left knee/ right foot pain has much improved. feels better today and wants to go home. Physical Exam Vital signs: Vital Signs 04/10/18 09:00 04/10/18 12:00 04/10/18 12:01 Temperature 98.6 F Pulse Rate 70 68 Respiratory Rate 20 20 Blood Pressure 115/63 Pulse Oximetry 98 04/10/18 16:00 04/10/18 20:00 04/11/18 00:00 Temperature 97.0 F L 97.0 F L 96.6 F L Pulse Rate 86 72 70 Respiratory Rate 19 20 20 Blood Pressure 101/59 L 110/67 117/75 Pulse Oximetry 97 98 98 04/11/18 04:00 Temperature 96 F L Pulse Rate 76 Respiratory Rate 20 Blood Pressure 108/63 Pulse Oximetry 98 Intake & Output 04/10/18 04/11/18 04/11/18 18:59 06:59 18:59 Intake Total 1720 / 1720 1480 / 1480 Output Total 700 / 700 Balance 1020 / 1020 1480 / 1480 Weight 85.4 kg Intake: IV 1000 / 1000 1000 / 1000 NS Inj 1,000 ML @ 84 mls/hr IV. 1000 / 1000 1000 / 1000 CONT .[id number] [facility] Rx#: [id number] Oral 480 / 480 480 / 480 Tube Feeding 240 / 240 Output: Urine 700 / 700 Other: Date of Last Bowel Movement 04/07/18 - Constitutional no acute distress - Routine Respiratory Exam Present: CTA bilaterally - Routine Cardiovascular Exam Present: RRR - Routine Abdominal Exam Present: soft - Routine Extremities Exam Comments: swelling of the left knee has improved with better ROM. - Routine Neurological Exam Present: alert, oriented X3 Results - Labs CBC & Chem 7: 04/10/18 04:50 04/11/18 05:00 Laboratory Results - last 24 hr 04/09/18 04/10/18 04/10/18 15:10 11:56 16:26 PT INR Sodium Potassium Chloride Carbon Dioxide Anion Gap BUN Creatinine Estimated GFR POC Glucose 235 H 334 H Random Glucose Hemoglobin A1c 7.5 H Calcium 04/10/18 04/11/18 04/11/18 22:28 05:00 05:00 PT 21.4 H D INR 2.1 Sodium 139 Potassium 3.6 Chloride 105 Carbon Dioxide 26.3 Anion Gap 8 BUN 36 H Creatinine 1.10 Estimated GFR 68 L POC Glucose 265 H Random Glucose 152 H D Hemoglobin A1c Calcium 8.8 04/11/18 07:35 PT INR Sodium Potassium Chloride Carbon Dioxide Anion Gap BUN Creatinine Estimated GFR POC Glucose 154 H Random Glucose Hemoglobin A1c Calcium Assessment and Plan - Plan A/P - gout flare-up- improving. continue steroids- will avoid NSAIDs/ colchicine due to HARITHA -HARITHA- superimposed on CKD- improved. -coagulopathy/ Coumadin toxicity- INR trended down. will resume Coumadin with outpatient follow-up. -a-fib- resume BB with close monitoring of BP- on Coumadin. -transient hypotension- has resolved. -diabetes mellitus A1c 7.5- the blood sugar levels expected to improve as the steroid is being tapered off- f/u as outpatient and this was d/w the patient. Discharge Planning: dc home today with f/u with PCP. HHC was offered but the patient declined. INR monitoring as outpatient. d/w the patient. E-Cemce was consulted prior to discharge.
[2018-04-11] MEDS: predniSONE 20 MG Tablet PO SCH (08:21)
[2018-04-11] MEDS: Insulin NovoLOG Aspart Correctional Sugar Inj SQ SCH ×2 (08:22→12:14)
--- NOTE | 2018-04-11 08:30 | P.DS ---
Date of admission: 04/09/18 16:40 Primary care physician: Cruz Saucedo Brief History from admission: patient is a 62 y/o male with history of CAD, CKD, gout,who presented to ER with left knee and right foot pain. he was seen in ER about two weeks ago with gout flare-up and was discharged with oral steroids. he says that he was initially fine but the pain came back two days ago and started to get worse. he denies any fever,chills.he denies any chest pain, sob or active bleeding. DS: Medications - Discharge Medications Prescriptions: hydrocodone-acetaminophen 1 tab PO Q6H PRN #8 tab PRN Reason: acute pain prednisone 5 mg PO DIRECTED 10 Days #10 tab warfarin [Coumadin] 4 mg PO DAILY 30 Days #30 tab DS: Summary Hospital Course: patient was admitted with gout flare-up/ coumadin toxicity and HARITHA. he was started on oral steroids along with IV fluid. his general condition improved with improved pain of the left knee and right foot.his renal function improved and his INR trended down. he will be discharged home with outpatient f/u with his pcp. - Time Spent with Patient Total time spent providing and/or coordinating discharge services: Less than 30 minutes - Quality: VTE Deep Vein Thrombosis/Pulmonary Embolism Present on Admission: No Exam Vital signs: Vital Signs 04/10/18 09:00 04/10/18 12:00 04/10/18 12:01 Temperature 98.6 F Pulse Rate 70 68 Respiratory Rate 20 20 Blood Pressure 115/63 Pulse Oximetry 98 04/10/18 16:00 04/10/18 20:00 04/11/18 00:00 Temperature 97.0 F L 97.0 F L 96.6 F L Pulse Rate 86 72 70 Respiratory Rate 19 20 20 Blood Pressure 101/59 L 110/67 117/75 Pulse Oximetry 97 98 98 04/11/18 04:00 Temperature 96 F L Pulse Rate 76 Respiratory Rate 20 Blood Pressure 108/63 Pulse Oximetry 98 Intake & Output 04/10/18 04/11/18 04/11/18 18:59 06:59 18:59 Intake Total 1720 / 1720 1480 / 1480 Output Total 700 / 700 Balance 1020 / 1020 1480 / 1480 Weight 85.4 kg Intake: IV 1000 / 1000 1000 / 1000 NS Inj 1,000 ML @ 84 mls/hr IV. 1000 / 1000 1000 / 1000 CONT .[id number] [facility] Rx#: [id number] Oral 480 / 480 480 / 480 Tube Feeding 240 / 240 Output: Urine 700 / 700 Other: Date of Last Bowel Movement 04/07/18 - Constitutional no acute distress - Routine Respiratory Exam Present: CTA bilaterally - Routine Cardiovascular Exam Present: RRR - Routine Abdominal Exam Present: soft - Routine Extremities Exam Comments: improved swelling of the left knee with better ROM. - Routine Neurological Exam Present: alert, oriented X3 Results Procedures completed during hospitalization: none Labs on day of discharge: Labs from last 24 hours 04/11/18 04/11/18 04/11/18 07:35 05:00 05:00 PT 21.4 H D INR 2.1 Sodium 139 Potassium 3.6 Chloride 105 Carbon Dioxide 26.3 Anion Gap 8 BUN 36 H Creatinine 1.10 Estimated GFR 68 L POC Glucose 154 H Random Glucose 152 H D Hemoglobin A1c Calcium 8.8 04/10/18 04/10/18 04/10/18 22:28 16:26 11:56 PT INR Sodium Potassium Chloride Carbon Dioxide Anion Gap BUN Creatinine Estimated GFR POC Glucose 265 H 334 H 235 H Random Glucose Hemoglobin A1c Calcium 04/09/18 15:10 PT INR Sodium Potassium Chloride Carbon Dioxide Anion Gap BUN Creatinine Estimated GFR POC Glucose Random Glucose Hemoglobin A1c 7.5 H Calcium Discharge Plan - Discharge Disposition Patient Disposition: 01 Discharge Home - Discharge Condition Condition: Stable - Discharge Details Anticipated Discharge Date: 04/09/18 - Physicians Team Primary Care Provider: Cruz Sauecdo Attending Provider: Anne Marie Staples
[2018-04-11 09:52] VITALS: RESP 18
[2018-04-11 12:08] VITALS: BP 98/50; PULSE 72; TEMP 96.7
== END 2018-04-11 12:21 | disposition home or self-care (01) ==
LOC: PHED 14:36 → PHEDA 16:40 → PH3 18:30
PROVIDERS: ADMIT Internal Medicine; ATTEND Internal Medicine

== ENCOUNTER 2018-04-21 14:19 | Inpatient (IN) ==
--- NOTE | 2018-04-21 15:00 | ED ---
HPI General Chief complaint: Arrhythmia / Palpitations Stated complaint: elevated heart rate Time Seen by Provider: 04/21/18 14:42 Source: patient Mode of arrival: ambulatory Limitations: no limitations History of Present Illness HPI narrative: This 62-year-old male was told to come here for evaluation of fast heart rate and elevated INR. He has a history of atrial fib/flutter. He has an implanted defibrillator. He has been on Coumadin. He went for a routine evaluation of his INR today. They told him his heart rate was elevated and that he should come here. Has not had any chest pain, shortness of breath or palpitations. He has had atrial fibrillation for about 2 years. 2 years ago he had coronary bypass and defibrillator implanted. He is on carvedilol 3.125 mg p.o. twice daily. He also takes Lasix. He denies any symptoms today. He does retain fluid. He has a history of cardiomyopathy with an ejection fraction 20-30%. He also has renal failure stage III Related Data Home Medications Medication Instructions Recorded Confirmed aspirin [Aspir-Low] 81 mg PO DAILY 03/06/18 04/21/18 carvedilol 3.125 mg PO BID 03/06/18 04/21/18 furosemide 40 mg PO DAILY 03/06/18 04/21/18 pravastatin 40 mg PO DAILY 03/06/18 04/21/18 prednisone 1 tab PO DAILY 04/21/18 04/21/18 Previous Rx's Medication Instructions Recorded hydrocodone-acetaminophen 1 tab PO Q6H PRN #8 tab 04/11/18 potassium chloride 20 meq PO DAILY 30 Days #30 tab 04/11/18 warfarin [Coumadin] 4 mg PO DAILY 30 Days #30 tab 04/11/18 Allergies Allergy/AdvReac Type Severity Reaction Status Date / Time No Known Allergies Allergy Verified 04/21/18 14:39 Review of Systems ROS: all other systems reviewed are negative [facility] Medical History Medical History Arthritis (Acute) Diabetes (Acute) Atrial fibrillation (Acute) Cardiac defibrillator in place (Acute) Gout (Acute) Kidney disease (Acute) Surgical History Surgical History H/O foot surgery (Acute) Hx of CABG (Acute) Family History Family History Other No pertinent family history Social History Social History Substance History: No History of Abuse Second Hand Smoke Exposure: No Smoking Status: Never smoker How Often Do You Have a Drink Containing Alcohol: Never Recent Travel in [facility] within the Last 8 Weeks: No Recent Out of Country Travel within the Last 8 Weeks: No Immunization History Tetanus Immunization: >5 Years Exam Narrative Exam Narrative: GENERAL: Well-developed male SKIN: Focused skin assessment warm/dry. HEAD: Atraumatic. Normocephalic. EYES: Pupils equal and round. No scleral icterus. No injection or drainage. ENT: No nasal bleeding or discharge. Mucous membranes pink and moist. NECK: Trachea midline. No JVD. CARDIOVASCULAR: Rapid irregular rate and rhythm. No murmur appreciated. RESPIRATORY: No accessory muscle use. Clear to auscultation. Breath sounds equal bilaterally. GASTROINTESTINAL: Abdomen soft, non-tender, nondistended. Hepatic and splenic margins not palpable. MUSCULOSKELETAL: No obvious deformities. No clubbing. No cyanosis. No edema. NEUROLOGICAL: Awake and alert. No obvious cranial nerve deficits. Motor grossly within normal limits. Normal speech. PSYCHIATRIC: Appropriate mood and affect; insight and judgment normal. Course Initial Documented Vital Signs Temperature 98.3 F 04/21/18 14:20 Pulse Rate 134 H 04/21/18 14:20 Respiratory Rate 14 04/21/18 14:20 Blood Pressure 92/74 L 04/21/18 14:20 Last Documented Vital Signs Temperature 98.3 F 04/21/18 14:20 Pulse Rate 110 H 04/21/18 15:05 Respiratory Rate 14 04/21/18 15:05 Blood Pressure 109/63 04/21/18 15:05 Pulse Oximetry 97 04/21/18 15:05 Medical Decision Making MDM Narrative Medical decision making narrative: Initial EKG shows 80 atrial flutter at a rate of 150. During a period of observation the patient was converted to atrial fibrillation initially with a rate of 130 and he does dip down to 110 or so. I have discussed his case with Dr. Nixon who is his vocal music instructor. His blood pressure on arrival was 90/70 and remains borderline. He is not a good candidate for additional beta blockers or calcium channel blockers because of his blood pressure and his cardiomyopathy. He recommends transfer to the main hospital for consultation with Dr. Estrada. We will initiate some intravenous digoxin Medical Screen Exam Complete: Yes Emergency Medical Condition: Yes Differential Diagnosis Differential Diagnosis: Differential includes atrial flutter, atrial fibrillation, coagulopathy Lab Data Result diagrams: 04/21/18 14:50 04/21/18 14:50 Lab Results 04/21/18 04/21/18 04/21/18 Range/Units 14:50 14:50 14:50 CBC w Diff Auto diff final WBC 14.0 H (4.0-11.0) th/mm3 RBC 4.42 L (4.50-5.90) mil/mm3 Hgb 12.6 L (13.0-17.0) gm/dL Hct 37.0 L (39.0-51.0) % MCV 83.8 (80.0-100.0) fL MCH 28.4 (27.0-34.0) pg MCHC 33.9 (32.0-36.0) % RDW 16.8 (11.6-17.2) % Plt Count 157 (150-450) th/mm3 MPV 9.2 (7.0-11.0) fL Neut % (Auto) 87.9 H (16.0-70.0) % Lymph % (Auto) 6.4 L (9.0-44.0) % [place] % (Auto) 4.8 (0.0-8.0) % Eos % (Auto) 0.6 (0.0-4.0) % Baso % (Auto) 0.3 (0.0-2.0) % Neut # (Auto) 12.3 H (1.8-7.7) th/mm3 Lymph # (Auto) 0.9 L (1.0-4.8) th/mm3 [place] # (Auto) 0.7 (0.0-0.9) th/mm3 Eos # (Auto) 0.1 (0.0-0.4) th/mm3 Baso # (Auto) 0.0 (0.0-0.2) th/mm3 WBC Differential . Differential Comment . PT 29.9 H (9.8-11.6) sec INR 3.0 Ratio APTT 44.3 H (24.3-30.1) sec Sodium 136 (136-145) meq/L Potassium 4.5 (3.5-5.1) meq/L Chloride 103 (98-107) meq/L Carbon Dioxide 24.5 (21.0-32.0) meq/L Anion Gap 9 (5-15) meq/L BUN 32 H (7-18) mg/dL Creatinine 1.70 H (0.60-1.30) mg/dL Estimated GFR 41 L (>89) mL/min Random Glucose 281 H (74-106) mg/dL Calcium 8.5 (8.5-10.1) mg/dL Total Bilirubin 0.8 (0.2-1.0) mg/dL AST 18 (15-37) U/L ALT 35 (12-78) U/L Alkaline Phosphatase 199 H (45-117) U/L Troponin I Less than 0.02 L (0.02-0.05) ng/mL Total Protein 6.8 (6.4-8.2) g/dL Albumin 3.1 L (3.4-5.0) g/dL Discharge Plan Discharge Disposition Patient Disposition: 30 Still Patient Discharge Condition Condition: Fair Discharge Details Diagnosis: Atrial flutter with rapid ventricular response Physicians Team ED Provider: Misbah Murphy Primary Care Provider: Cruz Saucedo Rxs /Orders / Referrals /Forms Prescriptions: No Action hydrocodone-acetaminophen 5-325 mg tablet 1 tab PO Q6H PRN (Reason: acute pain) Qty: 8 RF: 0 warfarin [Coumadin] 4 mg Tablet 4 mg PO DAILY 30 Days Qty: 30 RF: 0 potassium chloride 20 mEq Tablet Extended Release 20 meq PO DAILY 30 Days Qty: 30 RF: 0 furosemide 40 mg Tablet 40 mg PO DAILY RF: 0 pravastatin 40 mg Tablet 40 mg PO DAILY RF: 0 aspirin [Aspir-Low] 81 mg Tablet,Delayed Release (Dr/Ec) 81 mg PO DAILY RF: 0 carvedilol 3.125 mg Tablet 3.125 mg PO BID RF: 0 prednisone 10 mg Tablets,Dose Pack 1 tab PO DAILY RF: 0 Status ED Status: With Doctor
[2018-04-21 15:01] LABS: Baso % (Auto) 0.3 % (0.0-2.0); Eos # (Auto) 0.1 th/mm3 (0.0-0.4); Eos % (Auto) 0.6 % (0.0-4.0); Hemoglobin 12.6 gm/dL (13.0-17.0); Lymph # (Auto) 0.9 th/mm3 (1.0-4.8); Lymph % (Auto) 6.4 % (9.0-44.0); Mean Corpuscular HGB Conc 33.9 % (32.0-36.0); Mean Corpuscular Hemoglobin 28.4 pg (27.0-34.0); Mean Corpuscular Volume 83.8 fL (80.0-100.0); Mean Platelet Volume 9.2 fL (7.0-11.0); Mono # (Auto) 0.7 th/mm3 (0.0-0.9); Mono % (Auto) 4.8 % (0.0-8.0); Neut # (Auto) 12.3 th/mm3 (1.8-7.7); Neut % (Auto) 87.9 % (16.0-70.0); Platelet Count 157 th/mm3 (150-450); Red Blood Count 4.42 mil/mm3 (4.50-5.90); Red Cell Distribution Width 16.8 % (11.6-17.2)
[2018-04-21 15:08] LABS: Chloride 103 meq/L (98-107); Potassium 4.5 meq/L (3.5-5.1); Sodium 136 meq/L (136-145)
[2018-04-21 15:13] LABS: Calcium 8.5 mg/dL (8.5-10.1)
[2018-04-21 15:14] LABS: Albumin 3.1 g/dL (3.4-5.0); Anion Gap 9 meq/L (5-15); Blood Urea Nitrogen 32 mg/dL (7-18); Carbon Dioxide 24.5 meq/L (21.0-32.0); Glucose,Random 281 mg/dL (74-106)
[2018-04-21 15:17] LABS: Alanine Aminotransferase 35 U/L (12-78); Aspartate Aminotransferase 18 U/L (15-37); Glomerular Filtration Rate 41 mL/min (>89)
[2018-04-21 15:18] LABS: Total Protein 6.8 g/dL (6.4-8.2)
[2018-04-21 15:20] LABS: Alkaline Phosphatase 199 U/L (45-117)
[2018-04-21 15:24] LABS: Activated Partial Thrombo Time 44.3 sec (24.3-30.1); Prothrombin Time 29.9 sec (9.8-11.6)
[2018-04-21] MEDS ORDERED: Digoxin Inj 500 MCG/2 ML Ampul IV.PUSH ONE (15:37)
--- NOTE | 2018-04-21 15:52 | XR ---
EXAM DATE: 04/21/2018 3:48 PM EDT AGE/SEX: 62 years / Male INDICATIONS: Elevated heart rate. CLINICAL DATA: This is the patient's initial encounter. Patient reports that signs and symptoms have been present for 1 day and indicates a pain score of 0/10. MEDICAL/SURGICAL HISTORY: . Cardiovascular disease. . CABG. Defibrillator. COMPARISON: [facility], CHEST 1V SINGLE AP, 03/06/2018. . FINDINGS: A single AP portable erect view of the chest was obtained and again demonstrates the patient is statu s post median sternotomy. The left subclavian transvenous pacer remains in place. Streaky opacity is again noted the lung bases left greater than right consistent with scarring. There is mild blunting o f left costophrenic angle again noted. The heart size is mildly prominent with no perihilar edema. Th e bony thorax is intact. CONCLUSION: 1. Mild blunting of the left costophrenic angle most consistent with a small effusion. 2. The heart size is mildly prominent with no evidence of acute pulmonary edema. 3. Scarring at the lung bases left greater than right. Electronically signed by: Hermelindo Louis MD 04/21/2018 3:51 PM EDT
[2018-04-21] MEDS ORDERED: Acetaminophen 325 MG Tablet PO PRN (18:20)
[2018-04-21] MEDS ORDERED: Bisacodyl 10 MG Supp RECTAL PRN (18:20)
[2018-04-21 18:38] LABS: Potassium 3.8 meq/L (3.5-5.1)
[2018-04-21 19:10] LABS: Calcium 7.3 mg/dL (8.5-10.1); Carbon Dioxide 24.5 meq/L (21.0-32.0)
[2018-04-21 19:30] LABS: Total Protein 5.8 g/dL (6.4-8.2)
[2018-04-22] MEDS: Senna/Docusate Sodium 8.6/50 MG Tablet PO SCH ×3 (00:15→21:28)
[2018-04-22] MEDS ORDERED: Dextrose 50% in Water 50 ML Vial IV.PUSH PRN (05:25)
--- NOTE | 2018-04-22 05:27 | P.HPIM ---
History of Present Illness Service: [facility] Primary Care Physician: Cruz Saucedo Chief Complaint: elevated HR History of Present Illness: 62 y/o male with a history of chf with an AICD, DM, afib anticoagulated on Coumadin, gout and ckd presented to the ED for evaluation of an elevated HR. Patient states he was getting his routine check for INR completed and he was told his HR was elevated and should come to the ER. Patient sees Dr. Nixon and the ER physician discussed the case with him and he wanted him to be evaluated by Dr. Duenas. Patient denies any associated symptoms no chest pain, sob, fever, chills, dizziness or headache. He states he has no history of an ablation and his defibrillator has never fired, he is also unsure of his most recent EF. Inpatient Certification: I certify that the inpatient services were ordered in accordance with Medicare regulations governing the order. This includes certification that hospital inpatient services are reasonable and necessary and in the case of services not specified as inpatient-only under 42 CFR 419.22(n), that they are appropriately provided as inpatient services in accordance to with the 2-midnight benchmark under 43 CFR 412.3(e) Estimated Total Length of Stay (Days): 2 Plans for Post Hospital Care: Home Review of Systems All other systems reviewed negative except as stated in HPI PMFSH - History History Provided By: Patient - Medical History Medical History: Medical History (Last Reviewed 04/22/18 @ 05:02 by KATT Pérez) Arthritis Diabetes Atrial fibrillation Cardiac defibrillator in place Gout Kidney disease - Surgical History Surgical History: Surgical History (Last Reviewed 04/22/18 @ 05:02 by KATT Pérez) H/O foot surgery Hx of CABG - Family History Family History: Family History (Last Reviewed 04/22/18 @ 05:02 by KATT Pérez) Other No pertinent family history - Social History I have reviewed the patient's Social History: Yes - Tobacco History Second Hand Smoke Exposure: No Smoking Status: Never smoker - Alcohol History How Often Do You Have a Drink Containing Alcohol: Never - Substance Use History Substance History: No History of Abuse - Travel History Recent Travel in the [place] Within the Last 8 Weeks: No Recent Travel Out of the Country Within the Last 8 Weeks: No - Immunization History Tetanus Immunization: >5 Years Hx Influenza Vaccine This Season: Yes Medications and Allergies Active Medications: Active Medications Acetaminophen (Tylenol) 650 mg PO Q4H PRN PRN Reason: Temp > 100.4 Al Hydroxide/Mg Hydroxide (Milk Of Magnesia Liq) 30 ml PO Q12H PRN PRN Reason: Mild Constipation Bisacodyl (Dulcolax Supp) 10 mg RECTAL DAILY PRN PRN Reason: SEVERE CONSITIPATION Carvedilol (Coreg) 3.125 mg PO BID [facility] Last Admin: 04/22/18 00:15 Dose: 3.125 mg Lactulose (Lactulose Liq) 30 ml PO DAILY PRN PRN Reason: SEVERE CONSITIPATION Ondansetron HCl (Zofran Inj) 4 mg IV.PUSH Q6H PRN PRN Reason: NAUSEA OR VOMITING Senna/Docusate Sodium (Mallorie-Colace) 1 tab PO BID [facility] Last Admin: 04/22/18 00:15 Dose: Not Given Sennosides (Senokot) 17.2 mg PO Q12H PRN PRN Reason: Moderate Constipation Sodium Chloride (Ns Flush) 2 ml IV.FLUSH UNSCH PRN PRN Reason: FLUSH AFTER USING IV ACCESS Allergies Allergy/AdvReac Type Severity Reaction Status Date / Time No Known Allergies Allergy Verified 04/21/18 14:39 Home Medications Medication Instructions Recorded Confirmed Type aspirin [Aspir-Low] 81 mg PO DAILY 03/06/18 04/21/18 History carvedilol 3.125 mg PO BID 03/06/18 04/21/18 History furosemide 40 mg PO DAILY 03/06/18 04/21/18 History pravastatin 40 mg PO DAILY 03/06/18 04/21/18 History prednisone 1 tab PO DAILY 04/21/18 04/21/18 History Exam Vital signs: Vital Signs 04/21/18 14:20 04/21/18 14:43 04/21/18 14:52 Temperature 98.3 F Pulse Rate 134 H 132 H Respiratory Rate 14 Blood Pressure 92/74 L Pulse Oximetry 96 98 04/21/18 15:05 04/21/18 16:14 04/21/18 18:00 Temperature Pulse Rate 110 H 72 Respiratory Rate 14 14 Blood Pressure 109/63 119/79 Pulse Oximetry 97 97 98 04/21/18 19:02 04/21/18 20:00 04/21/18 22:00 Temperature 97.8 F 98.2 F Pulse Rate 92 H 98 H 73 Respiratory Rate 16 18 Blood Pressure 131/64 144/67 H Pulse Oximetry 97 99 04/21/18 23:00 04/21/18 23:30 04/22/18 00:00 Temperature 98.0 F Pulse Rate 73 71 72 Respiratory Rate 15 Blood Pressure 107/61 Pulse Oximetry 99 04/22/18 01:00 04/22/18 02:00 04/22/18 03:00 Temperature 97.9 F Pulse Rate 72 72 73 Respiratory Rate 15 Blood Pressure 109/68 Pulse Oximetry 97 04/22/18 04:00 Temperature Pulse Rate 71 Respiratory Rate Blood Pressure Pulse Oximetry Intake & Output 04/21/18 04/21/18 04/22/18 06:59 18:59 06:59 Intake Total 48 / 48 Output Total 600 / 600 Balance -552 / -552 Weight 92 kg Intake: Oral 48 / 48 Output: Urine 600 / 600 Narrative: GENERAL: This is a well-nourished, well-developed patient, in no apparent distress. CARDIOVASCULAR: Regular rate and irregular rhythm without murmurs, gallops, or rubs. RESPIRATORY: Clear to auscultation. Breath sounds equal bilaterally. No wheezes , rales, or rhonchi. GASTROINTESTINAL: Abdomen soft, non-tender, nondistended. Normal active bowel sounds MUSCULOSKELETAL: Extremities without clubbing, cyanosis, or edema. NEURO: Alert & Oriented x4 to person, place, time, situation. Moves all ext x4 Results - Labs CBC & Chem 7: 04/21/18 14:50 04/21/18 18:25 Labs: Short CBC 04/21/18 Range/Units 14:50 WBC 14.0 H (4.0-11.0) th/mm3 Hgb 12.6 L (13.0-17.0) gm/dL Hct 37.0 L (39.0-51.0) % Plt Count 157 (150-450) th/mm3 BMP 04/21/18 04/21/18 14:50 18:25 Sodium 136 138 Potassium 4.5 3.8 Chloride 103 107 Carbon Dioxide 24.5 24.5 BUN 32 H 29 H Creatinine 1.70 H 1.40 H Calcium 8.5 7.3 L* D Cardiac Enzymes 04/21/18 Range/Units 14:50 Troponin I Less than 0.02 L (0.02-0.05) ng/mL Liver Function 04/21/18 Range/Units 14:50 Total Bilirubin 0.8 (0.2-1.0) mg/dL AST 18 (15-37) U/L ALT 35 (12-78) U/L Alkaline Phosphatase 199 H (45-117) U/L Albumin 3.1 L (3.4-5.0) g/dL - Imaging Impressions Chest X-Ray 04/21/18 15:37 CONCLUSION: 1. Mild blunting of the left costophrenic angle most consistent with a small effusion. 2. The heart size is mildly prominent with no evidence of acute pulmonary edema. 3. Scarring at the lung bases left greater than right. Caprini VTE Risk Assessment Caprini VTE Risk Assessment: Moderate/High Risk (score >= 2) Caprini Risk Assessment Model: Point Value = 1 Point Value = 2 Point Value = 3 Point Value = 5 Age 41-60 Minor surgery BMI > 25 kg/m2 Swollen legs Varicose veins or History of unexplained or recurrent spontaneous Oral contraceptives or hormone replacement Sepsis (< 1 month) Serious lung disease, including pneumonia (< 1 month) Abnormal pulmonary function Acute myocardial infarction Congestive heart failure (< 1 month) History of inflammatory bowel disease Medical patient at bed rest Age 61-74 Arthroscopic surgery Major open surgery (> 45 min) Laparoscopic surgery (> 45 min) Malignancy Confined to bed (> 72 hours) Immobilizing plaster cast Central venous access Age >= 75 History of VTE Family history of VTE Factor V Leiden Prothrombin [id number] Lupus anticoagulant Anticardiolipin antibodies Elevated serum homocysteine Heparin-induced thrombocytopenia Other congenital or acquired thrombophilia Stroke (< 1 month) Elective arthroplasty Hip, pelvis, or leg fracture Acute spinal cord injury (< 1 month) Prophylaxis Regimen: Total Risk Factor Score Risk Level Prophylaxis Regimen 0-1 Low Early ambulation 2 Moderate Order ONE of the following: *Sequential Compression Device (SCD) *Heparin 5000 units SQ BID 3-4 Higher Order ONE of the following medications: *Heparin 5000 units SQ TID *Enoxaparin/Lovenox 40 mg SQ daily (WT < 150 kg, CrCl > 30 mL/min) *Enoxaparin/Lovenox 30 mg SQ daily (WT < 150 kg, CrCl > 10-29 mL/min) *Enoxaparin/Lovenox 30 mg SQ BID (WT < 150 kg, CrCl > 30 mL/min) AND/OR *Sequential Compression Device (SCD) 5 or more Highest Order ONE of the following medications: *Heparin 5000 units SQ TID (Preferred with Epidurals) *Enoxaparin/Lovenox 40 mg SQ daily (WT < 150 kg, CrCl > 30 mL/min) *Enoxaparin/Lovenox 30 mg SQ daily (WT < 150 kg, CrCl > 10-29 mL/min) *Enoxaparin/Lovenox 30 mg SQ BID (WT < 150 kg, CrCl > 30 mL/min) AND *Sequential Compression Device (SCD) Assessment and Plan - Plan 62 y/o male with a history of chf with an AICD, DM, afib anticoagulated on Coumadin, gout and ckd presented to the ED for evaluation of an elevated HR. Afib/Flutter RVR, HR 150 EKG Reviewed and shows a rapid rate of 150, irregular rhythm -Monitor telemetry -Consult to Dr. Duenas for evaluation -Cont home Coumadin CHF, chronic, bnp slightly elevated 299 -Cont home carvedilol and Lasix DM, chronic -Accu checks with SSI CKD, creatine 1.4 at baseline -Avoid nephrotoxins -Monitor creatine DVT prophylaxis: Coumadin Discussed Condition With: Patient and RN H&P: Quality - VTE Deep Vein Thrombosis/Pulmonary Embolism Present on Admission: No
[2018-04-22] MEDS: Insulin NovoLOG Aspart Correctional Sugar Inj SQ SCH ×4 (08:14→21:28)
[2018-04-22] MEDS: Furosemide 40 MG Tablet PO SCH (09:28)
--- NOTE | 2018-04-22 10:04 | P.PNIM ---
Subjective Interval history: Patient is laying down comfortably. He currently does not have any complaints. Physical Exam Vital signs: Vital Signs 04/21/18 14:20 04/21/18 14:43 04/21/18 14:52 Temperature 98.3 F Pulse Rate 134 H 132 H Respiratory Rate 14 Blood Pressure 92/74 L Pulse Oximetry 96 98 04/21/18 15:05 04/21/18 16:14 04/21/18 18:00 Temperature Pulse Rate 110 H 72 Respiratory Rate 14 14 Blood Pressure 109/63 119/79 Pulse Oximetry 97 97 98 04/21/18 19:02 04/21/18 20:00 04/21/18 22:00 Temperature 97.8 F 98.2 F Pulse Rate 92 H 98 H 73 Respiratory Rate 16 18 Blood Pressure 131/64 144/67 H Pulse Oximetry 97 99 04/21/18 23:00 04/21/18 23:30 04/22/18 00:00 Temperature 98.0 F Pulse Rate 73 71 72 Respiratory Rate 15 Blood Pressure 107/61 Pulse Oximetry 99 04/22/18 01:00 04/22/18 02:00 04/22/18 03:00 Temperature 97.9 F Pulse Rate 72 72 73 Respiratory Rate 15 Blood Pressure 109/68 Pulse Oximetry 97 04/22/18 04:00 04/22/18 05:00 04/22/18 06:00 Temperature Pulse Rate 71 72 73 Respiratory Rate Blood Pressure Pulse Oximetry 04/22/18 07:00 04/22/18 08:00 04/22/18 09:00 Temperature 98.1 F Pulse Rate 73 74 72 Respiratory Rate 16 Blood Pressure 117/70 Pulse Oximetry 98 04/22/18 09:44 04/22/18 09:47 Temperature Pulse Rate 89 Respiratory Rate Blood Pressure Pulse Oximetry 98 Intake & Output 04/21/18 04/22/18 04/22/18 18:59 06:59 18:59 Intake Total 528 / 528 Output Total 1650 / 1650 Balance -1122 / -1122 Weight 92 kg 88.4 kg Intake: Oral 528 / 528 Output: Urine 1650 / 1650 Narrative: General patient in no acute distress, denies palpitations, chest pain, or dizziness. HEENT extraocular movements are intact, clear oropharyngeal mucosa, no JVD Cardiovascular S1-S2 audible Respiratory clear to auscultation bilaterally Abdomen soft, nontender, nondistended, normal bowel sounds Extremities no edema 2+ distal pulses in bilateral upper and lower extremities Neuro there are no neurological deficits. Patient was all 4 extremities, sensation is intact bilaterally. Results - Labs CBC & Chem 7: 04/21/18 14:50 04/21/18 18:25 Laboratory Results - last 24 hr 04/21/18 04/21/18 04/21/18 14:50 14:50 14:50 CBC w Diff Auto diff final WBC 14.0 H RBC 4.42 L Hgb 12.6 L Hct 37.0 L MCV 83.8 MCH 28.4 MCHC 33.9 RDW 16.8 Plt Count 157 MPV 9.2 Neut % (Auto) 87.9 H Lymph % (Auto) 6.4 L [place] % (Auto) 4.8 Eos % (Auto) 0.6 Baso % (Auto) 0.3 Neut # (Auto) 12.3 H Lymph # (Auto) 0.9 L [place] # (Auto) 0.7 Eos # (Auto) 0.1 Baso # (Auto) 0.0 WBC Differential . Differential Comment . PT 29.9 H INR 3.0 APTT 44.3 H Sodium 136 Potassium 4.5 Chloride 103 Carbon Dioxide 24.5 Anion Gap 9 BUN 32 H Creatinine 1.70 H Estimated GFR 41 L POC Glucose Random Glucose 281 H Calcium 8.5 Prot Corrected Calcium Total Bilirubin 0.8 AST 18 ALT 35 Alkaline Phosphatase 199 H Troponin I Less than 0.02 L B-Natriuretic Peptide Total Protein 6.8 Albumin 3.1 L TSH 04/21/18 04/21/18 04/21/18 14:50 18:25 18:25 CBC w Diff WBC RBC Hgb Hct MCV MCH MCHC RDW Plt Count MPV Neut % (Auto) Lymph % (Auto) [place] % (Auto) Eos % (Auto) Baso % (Auto) Neut # (Auto) Lymph # (Auto) [place] # (Auto) Eos # (Auto) Baso # (Auto) WBC Differential Differential Comment PT INR APTT Sodium 138 Potassium 3.8 Chloride 107 Carbon Dioxide 24.5 Anion Gap 7 BUN 29 H Creatinine 1.40 H Estimated GFR 51 L POC Glucose Random Glucose 156 H D Calcium 7.3 L* D Prot Corrected Calcium 8.0 L Total Bilirubin AST ALT Alkaline Phosphatase Troponin I B-Natriuretic Peptide 299 H Total Protein 5.8 L D Albumin TSH 0.346 L 04/22/18 07:39 CBC w Diff WBC RBC Hgb Hct MCV MCH MCHC RDW Plt Count MPV Neut % (Auto) Lymph % (Auto) [place] % (Auto) Eos % (Auto) Baso % (Auto) Neut # (Auto) Lymph # (Auto) [place] # (Auto) Eos # (Auto) Baso # (Auto) WBC Differential Differential Comment PT INR APTT Sodium Potassium Chloride Carbon Dioxide Anion Gap BUN Creatinine Estimated GFR POC Glucose 104 Random Glucose Calcium Prot Corrected Calcium Total Bilirubin AST ALT Alkaline Phosphatase Troponin I B-Natriuretic Peptide Total Protein Albumin TSH - Imaging Impressions Chest X-Ray 04/21/18 15:37 CONCLUSION: 1. Mild blunting of the left costophrenic angle most consistent with a small effusion. 2. The heart size is mildly prominent with no evidence of acute pulmonary edema. 3. Scarring at the lung bases left greater than right. Assessment and Plan - Plan This patient is a 62-year-old male with a diagnosis of coronary artery disease status post CABG, systolic CHF status post AICD, diabetes mellitus type 2, atrial fibrillation on Coumadin. The patient was getting his INR checked yesterday and was found to have a heart rate in the 150s. He was advised to come into the emergency department for evaluation. 1. A. fib/flutter with RVR Initial EKG shows A. fib with RVR and a heart rate in the 150s. Patient denied any chest pain, palpitations, or dizziness. Heart rate now better controlled. Continue Coreg Cardiology consulted to evaluate the patient. Will possibly benefit from ablation. I will follow-up with the recommendations from cardiology. Continue Coumadin. Continue to monitor on telemetry. 2. Systolic CHF Continue current medication regimen. Patient appears euvolemic, not in exacerbation. 3. Diabetes mellitus type 2 Continue sliding scale. The patient's diabetes medication regimen will be adjusted as needed. 4. Coronary artery disease status post CABG Continue aspirin, continue beta-yareli, continue statin. 5. Chronic kidney disease Baseline serum creatinine is 1.4. Avoid nephrotoxic agents. DVT prophylaxis, patient is on Coumadin.
--- NOTE | 2018-04-22 16:25 | ECG ---
Date Performed: 04/21/2018 Time Performed: 14:26:10 PTAGE: 62 years EKG: Supraventricular tachycardia with PVC's MARKED LEFT AXIS DEVIATION INTRAVENTRICULAR CONDUCT ION DELAY LEFT VENTRICULAR HYPERTROPHY AND ST-T CHANGE ABNORMAL ECG INTERPRETATION BASED ON A DEFAULT AGE OF 40 YEARS PREVIOUS TRACING : 04/09/2018 14.56 DOCTOR: Sal Lemus Interpretating Date/Time 04/22/2018 16:24:35
[2018-04-22] MEDS ORDERED: Lidocaine PF 1% Inj 30 ML Vial ONE (17:19)
[2018-04-22] MEDS ORDERED: Protamine Sulfate Inj 50 MG/5 ML Vial ONE (17:51)
[2018-04-22] MEDS ORDERED: Heparin Drip 25,000 UNIT/250 ML BAG IV.CONT ONE (17:51)
[2018-04-22] MEDS ORDERED: Heparin 10,000 UNITS/10 ML Vial (for IV use) ONE (17:52)
[2018-04-22] MEDS ORDERED: Isoproterenol HCl Inj 0.2 MG/ML Ampul ONE (17:52)
--- NOTE | 2018-04-22 18:58 | CATHPROC ---
Patient Name: Masoud De Paz Study #: [id number] Initial MD: Oliver Duenas Date of : 1955 Study Date: 04/22/2018 Cardiac Catheterization Report 04/22/2018 6:58:13 PM Financial #: [id number] 1 of 10 Patient Name: Masoud De Paz Study #: [id number] Initial MD: Oliver Duenas Date of : 1955 Study Date: 04/22/2018 Entire Case Report Patient Information Patient Name Masoud De Paz Date of 1955 Age 62 years Financial # [id number] Gender M AlternateID Lab Number 2 Room Number 457 Height (in) 72.0 Height (cm) 182.8 BSA 2.11 Weight (lbs) 194.5 Weight (kg) 88.4 Patient Address/Phone Number Home Address [facility] Home Phone Number [phone] [facility] [address] [place] [address] Study Information Study Number Admission Scheduled Start Study Start [id number] Apr 21 2018 3:56PM 04/22/2018 Apr 22 2018 4:43PM [place] [facility] Cardiac Catheterization Admit Source Facility Department Other [facility] Physician and Clinical Staff Initial Oliver Cornejo Manager Concrete Loc Winter,RT(R) Manager Concrete Pili HenaoRT(R) TECH2 Other Anesthesia, TANK CAR RECONDITIONER Recorder Rosi Ruiz,BIB Scrub Vernell Tinoco RCIS Procedures Performed Procedure Location (Site) Vessel Name Ablation Procedure ICE CATHETER INSERT RA Atruim RF Ablation RA Atruim Equipment Time Fingernail Sculptor Description Size Mfg Part Number Used/Scraped BIOSENSE GROSS CATHETER, CELSIUS DS, 8MM, F [id number] 18:01 FR 7 Used INC. TYPE QUAD *[id number] [employer]/ EP [id number] 17:00 KIT, TRANSDUCER / AFIB Used PACER *[id number] 04/22/2018 6:58:13 PM Financial #: [id number] 2 of 10 Patient Name: Masoud De Paz Study #: [id number] Initial MD: Oliver Duenas Date of : 1955 Study Date: 04/22/2018 [id number] CATHETER, FR7 OPTIMA SPIRAL 17:00 B[facility] FR7 *[id number]- Used BUNDLE BUNDLE [id number] 17:00 BUNDLE-[facility] CATHETER, JSN, QUAD BUNDLE FR 5 *[id number]- Used BUNDLE [id number] 17:00 BUNDLE-[facility] CATHETER, JSN, QUAD BUNDLE FR 5 *[id number]- Used BUNDLE [id number] SET, COOL POINT TUBING 17:00 BUNDLE-[facility] *[id number]- Used BUNDLE BUNDLE SHEATH, FR8.5 STEERABLE SM 17:00 BUNDLE-[facility] 71CM [id number] Used 71CM BUNDLE [id number] 18:39 C[employer] MEDICAL VASCADE, FR5 CLOSURE SYSTEM FR 5 Used *[id number] 18:26 [employer] VASCADE, FR6 CLOSURE SYSTEM FR 6\\7 Used *[id number] 18:26 C[employer] MEDICAL VASCADE, FR6 CLOSURE SYSTEM FR 6\\7 Used *[id number] 18:26 C[employer] MEDICAL VASCADE, FR6 CLOSURE SYSTEM FR 6\\7 Used *[id number] 18:27 C[employer] MEDICAL VASCADE, FR6 CLOSURE SYSTEM FR 6\\7 Used *[id number] COVER, TRANSDUCER CABLE 612-113 17:00 [employer] Used ACUNAV *[id number] 17:00 CORDIS/PACER SHEATH, FR10 BERNARD 11CM FR 10 Used *[id number] 17:00 CORDIS/PACER SHEATH, FR9 BERNARD 11CM FR 9 [id number] Used [id number] 17:00 [employer] BLANKET,WARM AIR CCL * Used *[id number] 17:00 [employer] PACK, CCL CUSTOM * Used *[id number] 17:00 [employer] PACER GRAVES, LIMB * 2530 *[id number] Used [id number] 17:00 [employer] MEDICAL SHEATH, FR4.5 PRELUDE 11CM FR 4.5 Used [id number] 17:54 [employer] MEDICAL SHEATH, FR5.5 PRELUDE 11CM FR 5 [id number] Used [id number] 17:00 NAMIC TUBING, HIGH PRESSURE 48" 48" Used *[id number] 17:00 NAMIC TUBING, HIGH PRESSURE 48" 48" Used *[id number] [id number] 17:00 [facility] MEDICAL ELECTRODE KIT, PARRISH X SURFACE * Used *8467622 116613 17:00 [facility] MEDICAL SHEATH, EPS, FR6 FAST CATH FR 6 Used *[id number] 17:00 [facility] MEDICAL SHEATH, EPS, FR7 FAST CATH FR 7 [id number] Used [id number] 17:00 [facility] MEDICAL SHEATH, EPS, FR8 FAST CATH FR 8 Used *[id number] CATHETER, ACUNAV FR10 ICE [id number] 18:01 ARRON FR 10 Used (ARRON) *[id number] [facility] PAD, ELECTROSURGICAL 17:00 * [id number] *[id number] Used SURGICAL GROUNDING (BLUE) 04/22/2018 6:58:13 PM Financial #: [id number] Patient Name: Masoud De Paz Study #: [id number] Initial MD: Oliver Duenas Date of : 1955 Study Date: 04/22/2018 Insurance Information Insurance Payor Medicare Third Alliance Party Third Alliance Party Number MEDICARE A B MCRAB History: Allergies Allergy Reaction No Known Allergies History: Risk Factors Previous Heart Failure Yes Diabetes Labs Hgb (g/dl) Hct (%) RBC (MIL/MM3) WBC (l/cumm) Platelets (thousands) 11.60-17.00 35.00-51.00 4.00-5.90 4.00-11.00 150.00-450.00 12.0 37 4.4 14 157 Glucose (mg/dl) BUN (mg/dl) Creatinine (mg/dl) BUN:Creatinine (1:x) 74.00-106.00 7.00-18.00 0.50-1.30 10.00-20.00 156 29 1.4 20.7 Na (meq/l) K (meq/l) 136.00-145.00 3.50-5.10 138 3.8 INR (PTT:PT) 0.90-1.10 3 Medication Medication Total Dose (Bolus/Oral) Medication Total Dosage/Unit 1% XYLOCAINE 40 mL 04/22/2018 6:58:13 PM Financial #: [id number] 4 of 10 Patient Name: Masoud De Paz Study #: [id number] Initial MD: Oliver Duenas Date of : 1955 Study Date: 04/22/20 18 Medications (Bolus/Oral) Medication Time Given Dosage/Unit Administered By Reason 1% XYLOCAINE 04/22/2018 5:49:13 PM 20 mL Olievr Duenas 20 mL 1% XYLOCAINE given in lab by Oliver Duenas in Left Groin via Subcutaneous. Ordered by Lukasz Duenas. 1% XYLOCAINE 04/22/2018 5:54:14 PM 20 mL Oliver Duenas 20 mL 1% XYLOCAINE given in lab by Oliver Duenas in Right Groin via Subcutaneous. Ordered by Lety Duenas. Medication (Drip) Medication Time Given Dosage/Unit Concentration/Unit Diluent (ml) Solution ISUPREL 04/22/2018 6:15:55 PM 5 mcg/min 1 mg 250 NaCl .9 5 mcg/min ISUPREL given in lab by Anesthesia, TANK CAR RECONDITIONER via Peripheral IV. Pump/Drip Flow = 75 ml/hr using NaCl .9 with a concentration of 1 mg in 250 ml. Ordered by Oliver Duenas. Reason: As per physicians verbal order. ISUPREL 04/22/2018 6:18:07 PM 0 mcg/min 1 mg 250 NaCl .9 0 mcg/min ISUPREL given in lab by Anesthesia, TANK CAR RECONDITIONER via Peripheral IV. Pump/Drip Flow = 0 ml/hr using NaCl .9 with a concentration of 1 mg in 250 ml. Ordered by Oliver Duenas. Discontinued at 04/22/2018 18:22. IV Solutions 04/22/2018 5:17:23 PM 0 mL (IV) NaCl .9 IV Solutions given in lab by Rosi Ruiz RN in Right Antecubital via Peripheral IV. Pump/Drip F low = 30 ml/hr using NaCl .9. Ordered by Oliver Duenas. Reason: As per physicians verbal order. IV Solutions 04/22/2018 5:21:19 PM 0 mL (IV) NaCl .9 IV Solutions given in lab by Rosi Ruiz RN in Left Forearm via Peripheral IV. Pump/Drip Flow = 30 ml/hr using NaCl .9. Ordered by Oliver Duenas. Reason: As per physicians verbal order. 04/22/2018 6:58:13 PM Financial #: [id number] 5 of 10 Patient Name: Masoud De Paz Study #: [id number] Initial MD: Oliver Duenas Date of : 1955 Study Date: 04/22/2018 Initial Case Assessment Cardiovascular HR Rhythm NIBP 101 AF w/RVR 141/77 Edema Present Skin color Skin None Normal Warm Dry Circulatory - Right Pulses Dorsalis Pedis 1 Scale (0,1,2,3,4,d) Circulatory - Left Pulses Dorsalis Pedis 1 Scale (0,1,2,3,4,d) Circulatory - Lower Extremities Color Lower Right Color Lower Left Normal Normal Neurological State Oriented to time-place- Alert Moves all extremities person Respiration - General Respiration Rate SpO2 (%) (B/min) 18 99 04/22/2018 6:58:13 PM Financial #: [id number] 6 of 10 Patient Name: Masoud De Paz Study #: [id number] Initial MD: Oliver Duenas Date of : 1955 Study Date: 04/22/2018 Final Case Assessment Cardiovascular HR NIBP 113 103/77 Edema Present Skin color Skin None Normal Warm Dry Circulatory - Right Pulses Dorsalis Pedis 1 Scale (0,1,2,3,4,d) Circulatory - Left Pulses Dorsalis Pedis 1 Scale (0,1,2,3,4,d) Circulatory - Lower Extremities Color Lower Right Color Lower Left Normal Normal Neurological State Drowsy Moves all extremities Respiration - General Respiration Rate SpO2 (%) (B/min) 16 100 Chronological Log Time Study Chronological Log 17:03:20 Patient arrived via Bed. 17:03:21 Patient Name, D.O.B, / Armband Verified By R.N. 17:03:22 Consent signed by the physician and the patient and verified by the [facility] staff. 17:04:23 Pre-op and post- op instructions given; patient acknowledges understanding of instructions. 17:04:25 Verbal Stimulation=2 Physical Stimulation=2 Airway=2 Respiration=2 TOTAL=8. (0=absent, 1=li mited, 2=present) 17:07:38 History and physical on the chart. 17:10:04 Patient has been NPO for More than 6Hrs. 17:10:05 Skin Breakdown- pink raised rash scattered over entire buttocks, left groin 17:17:04 Patient Warmer Placed on the Table. 04/22/2018 6:58:13 PM Financial #: [id number] Patient Name: Masoud De Paz Study #: [id number] Initial MD: Oliver Duenas Date of : 1955 Study Date: 04/22/2018 17:17:04 Disposable Defibrillator Pads Placed On Patient. 17:17:05 [place]kechi Prominences Protected 17:17:08 A # 20 IV was noted in the Antecubital (right). Grade = 0 IV Solutions given in lab by Rosi Ruiz RN in Right Antecubital via Peripheral IV. Pump/ Drip Flow = 30 ml/hr 17:17:23 using NaCl .9. Ordered by Oliver Duenas. Reason: As per physicians verbal order. Assessment: Initial Case, RH=134 BPM, Rhythm=AF w/RVR, XNCR=210/77 mmhg, Edema=None, Color=Norm al, Skin = Warm, Dry Right Pulses: Justin Ped=1 Left Pulses: Justin Ped=1 17:20:11 Lower Right Extremities: Color=Normal Lower Left Extremities: Color=Normal Neurological: State=Alert, Ox3, ALDRICH Respiration: Resp=18 B/min, SpO2=99 % 17:21:09 A # 20 IV was noted in the Forearm (left). Grade = 0 IV Solutions given in lab by Rosi Ruiz RN in Left Forearm via Peripheral IV. Pump/Drip Flow = 30 ml/hr using 17:21:19 NaCl .9. Ordered by Oliver Duenas. Reason: As per physicians verbal order. 17:22:36 Table restraints applied according to hospital policy 17:23:35 MD arrived. 17:25:26 Reference ECG taken 17:30:19 Held babcock cath insertion per order Dr. Duenas. 17:36:12 Bilateral groins prepped with 2% chlorhexidine, and draped after a 3 minute waiting time. 17:37:34 AICD turned off. VVI 40 programmed by rep per order Dr. Duenas. 17:37:37 Anesthesiologist present for intubation. Time Out. Correct patient, procedure, procedure equipment, site and side verified with physicia n present. Time 17:45:18 concurred by MD, individual staff and TANK CAR RECONDITIONER. Time Out #2 - Consents verified, patient in correct position, all results are labled and displa yed, safety precautions 17:45:22 taken, antibiotics administered. Time out concurred by MD, individual staff and TANK CAR RECONDITIONER in procedu re 17:45:25 Case Start 17:45:43 RAYMOND in progress. 17:48:19 RAYMOND completed. Ep commencing. 17:49:13 20 mL 1% XYLOCAINE given in lab by Oliver Duenas in Left Groin via Subcutaneous. Ordered by Oliver Duenas. 17:49:54 Vascular access was obtained in the Fem Vein (left). 17:50:14 Vascular access was obtained in the Fem Vein (left). 17:50:18 Vascular access was obtained in the Fem Vein (left). 17:51:52 Vascular access was obtained in the Fem Vein (left). 17:51:55 Vascular access was obtained in the Fem Art (left). 17:52:13 A SHEATH, FR10 BERNARD 11CM FR 10 was advanced into the Fem Vein (left) using the Modified S eldinger technique. 17:52:21 A SHEATH, EPS, FR6 FAST CATH FR 6 was advanced into the Fem Vein (left) using the Modified Seldinger technique. 17:52:29 A SHEATH, EPS, FR7 FAST CATH FR 7 was advanced into the Fem Vein (left) using the Modified Seldinger technique. 17:52:48 A SHEATH, FR5.5 PRELUDE 11CM FR 5 was advanced into the Fem Art (left) using the Modified S eldinger technique. 17:54:14 20 mL 1% XYLOCAINE given in lab by Oliver Duenas in Right Groin via Subcutaneous. Ordered b Oliver Palacios. 17:54:20 Vascular access was obtained in the Fem Vein (right). 04/22/2018 6:58:13 PM Financial #: [id number] 8 of 10 Patient Name: Masoud De Paz Study #: [id number] Initial MD: Oliver Duenas Date of : 1955 Study Date: 04/22/2018 17:54:23 A SHEATH, EPS, FR8 FAST CATH FR 8 was advanced into the Fem Art (right) using the Modified Seldinger technique. A CATHETER, JSN, QUAD BUNDLE FR 5 was advanced vis Fem Vein (left) and placed in the CS. Placem ent was visually 17:55:38 confirmed under fluoroscopy. A CATHETER, JSN, QUAD BUNDLE FR 5 was advanced vis Fem Vein (left) and placed in the HIS. Place ment was 17:55:47 visually confirmed under fluoroscopy. 17:58:46 CATHETER, ACUNAV FR10 ICE ([employer]) FR 10 Was Postioned. 18:01:58 RF Ablation of the RA with a CATHETER, CELSIUS DS, 8MM, F TYPE QUAD FR 7. 18:02:45 Ablation in progress. 18:10:08 Ablation complete. Converted to SB rate 54. 5 mcg/min ISUPREL given in lab by Anesthesia, TANK CAR RECONDITIONER via Peripheral IV. Pump/Drip Flow = 75 ml/hr using NaCl .9 with 18:15:55 a concentration of 1 mg in 250 ml. Ordered by Oliver Duenas. Reason: As per physicians verbal o rder. 0 mcg/min ISUPREL given in lab by Anesthesia, TANK CAR RECONDITIONER via Peripheral IV. Pump/Drip Flow = 0 ml/hr using NaCl .9 with a 18:18:07 concentration of 1 mg in 250 ml. Ordered by Oliver Duenas. Discontinued at 04/22/2018 18:22. 18:21:03 All Catheters were removed. 18:21:11 AICD device reprogrammed back to original settings by rep per order Dr. Duenas. 18:24:53 Ablation procedure performed: Aflutter. 18:25:02 EP Procedure was performed. 18:25:21 VASCADE, FR5 CLOSURE SYSTEM FR 5 placement in the Fem Art (left) 18:25:44 VASCADE, FR6 CLOSURE SYSTEM FR 6\\7 placement in the Fem Vein (left) 18:26:01 VASCADE, FR6 CLOSURE SYSTEM FR 6\\7 placement in the Fem Vein (left) 18:26:25 VASCADE, FR6 CLOSURE SYSTEM FR 6\\7 placement in the Fem Vein (right) 18:37:38 Sterile dressings applied to sites 18:37:58 Case End (Physician broke scrub) 18:38:57 No case complications noted. 18:38:58 Cine recording checked. 18:39:02 Implantable Device card placed in patient's chart. 18:39:05 PACU called. Spoke to Monk. 18:40:10 Bedside Report will be given. 18:40:24 Defibrillator and ground pads removed. Skin intact. 18:46:29 Patient moved to stretcher 18:47:20 Extubated by anesthesia to supplemetal oxygen @ 2l/min NC Assessment: Final Case, ZT=402 BPM, ZUAO=812/77 mmhg, Edema=None, Color=Normal, Skin = Warm, Dr y Right Pulses: Justin Ped=1 Left Pulses: Justin Ped=1 18:48:11 Lower Right Extremities: Color=Normal Lower Left Extremities: Color=Normal Neurological: State=Drowsy, ALDRICH Respiration: Resp=16 B/min, OwL0=461 % 19:00:00 Transported via bed to PACU with TANK CAR RECONDITIONER and tech accompanying pt in stable condition. 04/22/2018 6:58:13 PM Financial #: [id number] Patient Name: Masoud De Paz Study #: [id number] Initial MD: Oliver Duenas Date of : 1955 Study Date: 04/22/2018 End Study - Contrast Media Used In Study Contrast Total Opened (mL) Total Used (mL) Total Wasted (mL) Unspecified 0 0 0 End Study - Maximum Contrast Load Max Contrast Load (mL) 315.7 End Study - Radiation Exposure Fluoro Time (minutes) 3.9 End Study - Patient Disposition Complications Transferred To No Telemetry Bed 04/22/2018 6:58:13 PM Financial #: [id number]
[2018-04-22] MEDS ORDERED: fentaNYL Citrate Inj 100 MCG/2 ML Ampul ONE (19:25)
--- NOTE | 2018-04-22 21:05 | MA ---
cc: Oliver Duenas MD DATE: 04/22/2018 PROCEDURE PERFORMED: Electrophysiology study, CS cannulation, 3-D mapping, pericardiac echocardiogram, radiofrequency ablation of atrial flutter, dual-chamber defibrillator reprogramming, repeat electrophysiology study on Isuprel infusion. INDICATION: Mr. De Paz is a 62-year-old gentleman with congestive heart failure, cardiomyopathy, previous dual-chamber defibrillator inserted, who was admitted due to atrial flutter/atrial fibrillation with a fast ventricular response. Heart rate could not be controlled. Electrophysiology study and ablation was decided. The risks, the nature and the benefits of the procedure were clearly stated to him. Risks included pneumothorax, cardiac perforation, stroke and even . The patient understood and agreed to proceed. DESCRIPTION OF PROCEDURE: After written informed consent was obtained, the patient was brought to the EP lab where he was prepped and draped in the usual sterile fashion. Conscious sedation was initiated and maintained throughout the procedure by the anesthesiologist. Once sedation was verified, the right and left inguinal areas were anesthetized with 2% Xylocaine. Using a modified Seldinger technique, the left femoral vein was cannulated on 2 occasions and 2 guidewires were advanced. Over the wires, one 6, one 7 and 10 Mauritian Hemaquets were advanced. Then, the left femoral artery was cannulated on 1 occasion and 1 guidewire was advanced. Over the wire, a 4 Mauritian Hemaquet was advanced. Then, the right femoral vein was cannulated on 1 occasion and 1 guidewire was advanced. Over the wire, an 8 Mauritian Hemaquet was advanced. Then, under fluoroscopic guidance, through the 6 and 7 Mauritian Hemaquets, two 5 Mauritian Chelly curved quadripolar electrophysiology catheters were advanced and placed on the His as well as coronary sinus. The patient was in flutter. Entrainment was performed and was positive. Previous to that, through the 10 Mauritian Hemaquet, a Cordis Chiang Ac[employer] intracardiac echo catheter was placed at the right atrium. Multiple views were obtained. There was a pericardial effusion. Pulmonary vein was seen. There was severe left atrial enlargement. There was severely decreased left ventricular wall contractility. Then, through the 8 Mauritian Hemaquet, a [employer]Color F-curve 8 mm mapping and radiofrequency ablation catheter was advanced. Using the [employer] mapping system, a 3-dimensional configuration of the right atrium was obtained. Then, the catheter was placed at the critical isthmus. Radiofrequency energy was delivered. During ablation, the cycle length prolonged and tachyarrhythmia terminated. Further burn was performed in the area. Then, atrial pacing protocol was performed. I did pace at the coronary sinus up to 220 milliseconds. No tachyarrhythmia was induced. Then, Isuprel was infused at 10 mcg. No tachyarrhythmia was induced. Post Isuprel, no tachyarrhythmia was induced. At that point, the procedure was complete. All catheters were removed. The patient is going to be transferred to the recovery room. No incident to report. The patient tolerated the procedure. Blood loss minimal. The dual-chamber defibrillator was reprogrammed to DDD 50 with defibrillatory . ELECTROCARDIOGRAM: At baseline, the patient was in atrial flutter. Post procedure, the patient was in sinus rhythm. BASIC INTERVAL: Basic cycle length was around 440 milliseconds. Post ablation, it was around 850 milliseconds. TACHYARRHYTHMIA: Atrial flutter was mapped and ablation was successful. CONCLUSION: Successful electrophysiology study, mapping and radiofrequency ablation of atrial flutter and successful dual-chamber defibrillator reprogramming. RECOMMENDATIONS: The patient is going to be transferred to the recovery room. We will observe. When stable, he can be discharged home. MD SILVIA To/jake/jose , 08:15 PM , 08:27 PM
[2018-04-23 05:17] LABS: Activated Partial Thrombo Time 46.2 sec (24.3-30.1); INR 2.9 Ratio; Prothrombin Time 29.6 sec (9.8-11.6)
[2018-04-23] MEDS: Furosemide 40 MG Tablet PO SCH (09:08)
[2018-04-23] MEDS: Senna/Docusate Sodium 8.6/50 MG Tablet PO SCH (09:09)
[2018-04-23] MEDS: Insulin NovoLOG Aspart Correctional Sugar Inj SQ SCH ×2 (09:16→13:28)
[2018-04-23 10:14] VITALS: RESP 18
[2018-04-23 11:17] VITALS: TEMP 98.3
--- NOTE | 2018-04-23 13:35 | ECG ---
Date Performed: 04/22/2018 Time Performed: 19:36:45 PTAGE: 62 years EKG: Sinus rhythm MARKED LEFT AXIS DEVIATION RIGHT BUNDLE BRANCH BLOCK MODERATE VOLTAGE CRITERIA FOR LVH, CONSIDER NOR MAL VARIANT MODERATE T-WAVE ABNORMALITY, CONSIDER LATERAL ISCHEMIA ABNORMAL ECG PREVIOUS TRACING : 04/21/2018 14.26 DOCTOR: Meek Caro Interpretating Date/Time 04/23/2018 13:32:42
--- NOTE | 2018-04-23 15:16 | P.DS ---
Date of admission: 04/21/18 15:56 Primary care physician: Cruz Saucedo Attending physician on discharge: Rickey Chowdary Anticipated date of discharge: 04/23/18 Brief History from admission: 62 y/o male with a history of chf with an AICD, DM, afib anticoagulated on Coumadin, gout and ckd presented to the ED for evaluation of an elevated HR. Patient states he was getting his routine check for INR completed and he was told his HR was elevated and should come to the ER. Patient sees Dr. Nixon and the ER physician discussed the case with him and he wanted him to be evaluated by Dr. Duenas. Patient denies any associated symptoms no chest pain, sob, fever, chills, dizziness or headache. He states he has no history of an ablation and his defibrillator has never fired, he is also unsure of his most recent EF. Patient update on day of discharge: Patient is doing well. No chest pain, shortness of breath, fever or chills. Wants to go home. Cardiology cleared for discharge. DS: Summary Hospital Course: This patient is a 62-year-old male with a diagnosis of coronary artery disease status post CABG, systolic CHF status post AICD, diabetes mellitus type 2, atrial fibrillation on Coumadin. The patient was getting his INR checked yesterday and was found to have a heart rate in the 150s. He was advised to come into the emergency department for evaluation. Patient was found to have Atrial flutter with RVR. Electrophysiology was consulted. Patient underwent EP study with ablation and re-programming of his dual chamber defibrillator. Post procedure, patient was in sinus rhythm. Cardiology cleared for discharge. All questions answered. - Time Spent with Patient Total time spent providing and/or coordinating discharge services: Less than 30 minutes - Quality: VTE Deep Vein Thrombosis/Pulmonary Embolism Present on Admission: No Exam Vital signs: Vital Signs 04/22/18 16:00 04/22/18 19:05 04/22/18 19:20 Temperature 98.2 F Pulse Rate 98 H 81 61 Respiratory Rate 20 20 Blood Pressure 114/67 114/68 Pulse Oximetry 100 99 04/22/18 19:35 04/22/18 19:50 04/22/18 20:00 Temperature 98.0 F 98.1 F Pulse Rate 61 67 68 Respiratory Rate 18 18 16 Blood Pressure 106/63 96/59 L 115/70 Pulse Oximetry 100 98 99 04/22/18 21:00 04/22/18 22:00 04/22/18 23:00 Temperature 98.4 F Pulse Rate 86 76 84 Respiratory Rate 16 16 16 Blood Pressure 117/67 95/58 L 86/57 L Pulse Oximetry 100 99 94 L 04/23/18 00:00 04/23/18 01:00 04/23/18 02:00 Temperature Pulse Rate 82 78 76 Respiratory Rate Blood Pressure Pulse Oximetry 04/23/18 03:00 04/23/18 04:00 04/23/18 05:00 Temperature 98.7 F Pulse Rate 72 88 78 Respiratory Rate 16 Blood Pressure 97/53 L Pulse Oximetry 98 04/23/18 06:00 04/23/18 07:00 04/23/18 08:00 Temperature 98.1 F Pulse Rate 76 87 64 Respiratory Rate 18 Blood Pressure 125/73 Pulse Oximetry 99 04/23/18 09:00 04/23/18 10:00 04/23/18 11:00 Temperature 98.3 F Pulse Rate 100 H 90 76 Respiratory Rate 18 Blood Pressure 105/73 Pulse Oximetry 99 04/23/18 12:00 04/23/18 13:00 04/23/18 14:00 Temperature Pulse Rate 96 H 88 74 Respiratory Rate Blood Pressure Pulse Oximetry 04/23/18 15:00 Temperature Pulse Rate 81 Respiratory Rate Blood Pressure Pulse Oximetry 99 Intake & Output 04/22/18 04/23/18 04/23/18 18:59 06:59 18:59 Intake Total 210 / 210 960 / 960 Output Total 1650 / 1650 350 / 350 Balance -1440 / -1440 610 / 610 Weight 87.7 kg Intake: Oral 210 / 210 960 / 960 Output: Urine 1650 / 1650 350 / 350 Other: Date of Last Bowel Movement 04/22/18 04/22/18 Narrative: GENERAL: Alert, NAD. SKIN: Warm and dry. HEAD: Normocephalic. EYES: No scleral icterus. No injection or drainage. NECK: Supple, trachea midline. No JVD or lymphadenopathy. CARDIOVASCULAR: Regular rate and rhythm without murmurs, gallops, or rubs. RESPIRATORY: Breath sounds equal bilaterally. No accessory muscle use. GASTROINTESTINAL: Abdomen soft, non-tender, nondistended. MUSCULOSKELETAL: No cyanosis, or edema. BACK: Nontender without obvious deformity. No CVA tenderness. Results Procedures completed during hospitalization: EP study with ablation for Atrial flutter. Labs on day of discharge: Labs from last 24 hours 04/23/18 04/23/18 04/23/18 13:26 09:07 04:03 PT 29.6 H INR 2.9 APTT 46.2 H POC Glucose 303 H 197 H 04/22/18 04/22/18 20:18 15:45 PT INR APTT POC Glucose 119 H 115 H - Impressions ITS Impressions Chest X-Ray 04/21/18 15:37 CONCLUSION: 1. Mild blunting of the left costophrenic angle most consistent with a small effusion. 2. The heart size is mildly prominent with no evidence of acute pulmonary edema. 3. Scarring at the lung bases left greater than right. Discharge Plan - Discharge Disposition Patient Disposition: 01 Discharge Home - Discharge Condition Condition: Good - Discharge Order Discharge Orders: Discharge Order (Routine); Ordered 04/23/18 Ordered By: Rickey Chowdary - Discharge Details Anticipated Discharge Date: 04/23/18 - Physicians Team Primary Care Provider: Cruz Saucedo Attending Provider: Rickey Chowdary Other Providers: Oliver Duenas MD
[2018-04-23 15:46] VITALS: BP 120/76; PULSE 96; O2SAT 100
--- NOTE | 2018-04-23 17:28 | P.PN ---
Subjective Interval history: Feeling fine Physical Exam Vital signs: Vital Signs 04/22/18 19:05 04/22/18 19:20 04/22/18 19:35 Temperature 98.2 F 98.0 F Pulse Rate 81 61 61 Respiratory Rate 20 20 18 Blood Pressure 114/67 114/68 106/63 Pulse Oximetry 100 99 100 04/22/18 19:50 04/22/18 20:00 04/22/18 21:00 Temperature 98.1 F Pulse Rate 67 68 86 Respiratory Rate 18 16 16 Blood Pressure 96/59 L 115/70 117/67 Pulse Oximetry 98 99 100 04/22/18 22:00 04/22/18 23:00 04/23/18 00:00 Temperature 98.4 F Pulse Rate 76 84 82 Respiratory Rate 16 16 Blood Pressure 95/58 L 86/57 L Pulse Oximetry 99 94 L 04/23/18 01:00 04/23/18 02:00 04/23/18 03:00 Temperature 98.7 F Pulse Rate 78 76 72 Respiratory Rate 16 Blood Pressure 97/53 L Pulse Oximetry 98 04/23/18 04:00 04/23/18 05:00 04/23/18 06:00 Temperature Pulse Rate 88 78 76 Respiratory Rate Blood Pressure Pulse Oximetry 04/23/18 07:00 04/23/18 08:00 04/23/18 09:00 Temperature 98.1 F Pulse Rate 87 64 100 H Respiratory Rate 18 Blood Pressure 125/73 Pulse Oximetry 99 04/23/18 10:00 04/23/18 11:00 04/23/18 12:00 Temperature 98.3 F Pulse Rate 90 76 96 H Respiratory Rate 18 Blood Pressure 105/73 Pulse Oximetry 99 04/23/18 13:00 04/23/18 14:00 04/23/18 15:00 Temperature 98.3 F Pulse Rate 88 74 96 H Respiratory Rate 18 Blood Pressure 120/76 Pulse Oximetry 100 Intake & Output 04/22/18 04/23/18 04/23/18 18:59 06:59 18:59 Intake Total 210 / 210 960 / 960 Output Total 1650 / 1650 350 / 350 Balance -1440 / -1440 610 / 610 Weight 87.7 kg Intake: Oral 210 / 210 960 / 960 Output: Urine 1650 / 1650 350 / 350 Other: Date of Last Bowel Movement 04/22/18 04/22/18 - Constitutional no acute distress - Routine HEENT Exam Head: Present: normocephalic Eye: Present: PERRL ENT: Present: mucous membranes moist - Routine Respiratory Exam Present: CTA bilaterally - Routine Cardiovascular Exam Present: RRR, S1, S2 - Routine Abdominal Exam Present: soft - Routine Neurological Exam Present: alert, oriented X3 - Detailed Neurological Exam: Coma Scale Eye Opening: Spontaneous Verbal Response: Oriented Motor Response: Obey commands [place] Coma Scale Total: 15 Results - Labs CBC & Chem 7: 04/21/18 14:50 04/21/18 18:25 Laboratory Results - last 24 hr 04/22/18 04/23/18 04/23/18 20:18 04:03 09:07 PT 29.6 H INR 2.9 APTT 46.2 H POC Glucose 119 H 197 H 04/23/18 13:26 PT INR APTT POC Glucose 303 H Assessment and Plan - Assessment (1) Atrial flutter with rapid ventricular response Code(s): I48.92 - Unspecified atrial flutter Status: Acute - Plan SP ablation In sinsu rhythm Doing well Evaluated early in the day Can be DH Continue on coumadin Follow up with me in 3-4 weeks
== END 2018-04-23 15:56 | disposition home or self-care (01) ==
LOC: PHED 14:19 → PHEDH 15:56 → HCPC 22:01
PROVIDERS: ADMIT Hospitalist; ATTEND Hospitalist